=== PATIENT | male | born 1940 | race Caucasian/White ===

== ENCOUNTER 2019-07-11 21:25 | Inpatient (IN) ==
[2019-07-11] MEDS ORDERED: SODIUM CHLORIDE 0.9% 500 ML IV SCH (21:45)
[2019-07-11 21:50] LABS: Basophils # (auto) 0.01 K/uL (0-0.2); Basophils % (auto) 0.2 %; Eosinophils # (auto) 0.04 K/uL (0-0.5); Eosinophils % (auto) 0.8 %; Hematocrit (blood only) 44.9 % (42-52); Hemoglobin 15.7 g/dL (14.0-18.0); Immature Granulocytes # (auto) 0.02 K/uL (0.00-0.02); Immature Granulocytes % (auto) 0.4 %; Lymphocytes # (auto) 0.58 K/uL (1.2-3.4); Lymphocytes % (auto) 11.6 %; Mean Corpuscular Hemoglobin 31.2 pg (25-34); Mean Corpuscular Volume 89.1 fL (80-100); Mean Platelet Volume 10.7 fL (7.4-10.4); Monocytes # (auto) 0.47 K/uL (0.11-0.59); Monocytes % (auto) 9.4 %; Neutrophils % (auto) 77.6 %; Platelet Count 131 K/uL (130-400); RDW Standard Deviation 45.7 fL (36.4-46.3); Red Blood Count 5.04 M/uL (4.7-6.1); White Blood Count 5.02 K/uL (4.8-10.8)
[2019-07-11 21:52] LABS: Appearance Urine Clear (Clear); Bacteria Urine Automated Negative (Negative); Blood Urine 2+ (Negative); Color Urine Dark Yellow; Epithelial Cell Urine Auto >30 /lpf (0-5); Glucose Urine UA Negative (Negative); Ketones Urine Trace (Negative); Leukocyte Esterase Urine Negative (Negative); Nitrite Urine Negative (Negative); Protein Urine 1+ (Negative); Specific Gravity Urine 1.022 (1.000-1.030); Urobilinogen Urine Negative (Negative)
[2019-07-11 21:55] LABS: Bilirubin Urine Negative (Negative); Ictotest Urine Negative (Negative)
[2019-07-11 22:03] LABS: Renal Epithelial Cells Urine 0-5 /lpf (0-5)
[2019-07-11 22:05] LABS: Alanine Aminotransferase 26 U/L (12-78); Albumin Level 3.3 gm/dl (3.4-5.0); Aspartate Aminotransferase 27 U/L (15-37); BUN Creatinine Ratio 12.2 (10-20); Blood Urea Nitrogen 21 mg/dl (7-18); Calcium 9.4 mg/dl (8.5-10.1); Carbon Dioxide 30 mmol/L (21-32); Chloride 107 mmol/L (98-107); Creatinine Clr Calc Pharmacy 36.5 ml/min; Est GFR (African American) 42.6; Est GFR (Non-African American) 36.7; Glucose 120 mg/dl (70-99); Magnesium 2.3 mg/dl (1.8-2.4); Potassium 3.4 mmol/L (3.5-5.1); Sodium 142 mmol/L (136-145)
[2019-07-11 22:15] LABS: Albumin Globulin Ratio 0.9 (0.9-2); Alkaline Phosphatase 97 U/L (45-117); Creatine Kinase 58 U/L (39-308); Globulin 3.7 gm/dl (2.5-4.0); Troponin I < 0.015 ng/ml (0-0.045)
--- NOTE | 2019-07-11 22:15 | XRay Report ---
XR chest 1V portable CLINICAL HISTORY: Acute change in mental status COMPARISON STUDY: Chest x-ray dated 01/03/2014, CT scan of the abdomen and pelvis dated 01/04/2014 FINDINGS: The heart is normal in size. There is a lower right paraspinal opacity which is felt to rep resent an ectatic/tortuous descending thoracic aorta. There is no failure. There is no lobar consolid ation. There are no pleural effusions.[ IMPRESSION: 1. 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 No evidence of failure. No evidence of focal pulmonary consolidation Electronically signed by: Bhavesh Brooks M.D. 07/11/2019 10:13 PM
[2019-07-11 22:27] LABS: T4 Free Thyroxine 1.56 ng/dl (0.8-1.6)
--- NOTE | 2019-07-11 22:39 | CT Scan Report ---
CT head/brain wo con CLINICAL HISTORY: Head trauma. Change in mental status. COMPARISON STUDY: Head CT dated 03/24/2014, MRI of the brain dated 03/19/2018 TECHNIQUE: Axial CT of the brain is performed from the vertex to the skull base. IV contrast was not administered for this examination. A dose lowering technique was utilized adhering to the principles of ALARA. CT DOSE: 1059.50 mGy.cm FINDINGS: No intra or extra-axial mass lesions are visualized. There is no CT evidence of acute cortical infarc tion. There is no evidence of midline shift. There is no acute hemorrhage. No calvarial fractures ar e visualized. There are moderate white matter hypodensities likely on a small vessel basis. There is an old right t halamic lacunar infarct. There is an old lacunar infarct posterior limb of the left internal capsule. There is a giant cisterna magna. There is mild ventricular dilatation which is felt to be secondary t o volume loss. There is no evidence of acute sinusitis There are prominent vertebral artery calcifications, and prominent internal carotid artery calcificat ions. IMPRESSION: No acute intracranial findings Electronically signed by: Bhavesh Brooks M.D. 07/11/2019 10:37 PM
--- NOTE | 2019-07-11 22:45 | CT Scan Report ---
CT OF THE CERVICAL SPINE CLINICAL HISTORY: Neck pain status post trauma COMPARISON STUDY: No previous studies for comparison. CT DOSE: TECHNIQUE: CT scan of the cervical spine was performed from the skull base to the thoracic inlet. Amanda ges are reviewed in the axial, sagittal, and coronal planes. IV contrast was not administered for thi s examination. A dose lowering technique was utilized adhering to the principles of ALARA. FINDINGS: The visualized portions of the lung apices reveal no evidence of pneumothorax. The prevertebral soft tissues are normal. No fractures or subluxations are visualized. There are multilevel degenerative changes IMPRESSION: No evidence of acute fracture or traumatic subluxation. Electronically signed by: Bhavesh Brooks M.D. 07/11/2019 10:44 PM
[2019-07-11] MEDS ORDERED: METOPROLOL TARTRATE 1 MG/ML VIAL IV STA (22:54)
--- NOTE | 2019-07-11 23:31 | Emergency Department Note ---
History of Present Illness General Chief complaint: Altered Mental Status Stated complaint: AMS Time Seen by Provider: 07/11/19 21:34 History of Present Illness This 79-year-old presents to the ER complaining of increased confusion who was found outside by the neighbor who has dementia Location: Generalized Quality: Increased confusion Severity: Moderate Duration: Tonight Timing: Tonight Context: Family was concerned and summoned EMS Modifying factors: better with nothing; worse with nothing Family is obtained from the ex- who states the patient's daughter was with him today to check on him around 4 PM and the patient went to go to bed so she left. The ex- states she received a phone call from the neighbor later that the patient was outside sitting on the bench cold and wet. EMS was summoned. She states he is more confused than baseline. He does have some dementia. He said a few strokes in the past. He is noncompliant with medication. Patient himself has no medical complaints. He knows his name but not the year or president. Home Medications Home Medications Medication Instructions Recorded Confirmed Type lisinopril 5 mg PO DAILY 07/11/19 07/11/19 History metoprolol tartrate 25 mg PO BID 07/11/19 07/11/19 History Allergies Allergy/AdvReac Type Severity Reaction Status Date / Time No Known Allergies Allergy Unverified 07/11/19 22:39 Past Med/Surg History Medical History CVA (cerebral vascular accident) Dementia High blood pressure Social History Preferred Language: Bahamian Communication Ability: Effective Product Inspection Coordinator Required: No Beliefs That Will Affect Care: None Current Living Situation: Spouse Feels Safe at Home: Yes Safety Concerns: Feels Safe At This Time Smoking Status: Unknown if ever smoked Hx Substance Use: No Review of Systems Unobtainable due to cognitive status Physical Exam Vital Signs Vital Signs - 24 hr 07/11/19 21:34 07/11/19 21:43 07/11/19 22:50 Temperature 36.4 C L Temperature Source Oral Sepsis Recent Fever Within 48 Hours No Sepsis New/Unexplained Change in Mental Status No Sepsis Action Taken by Nursing No Action Required Pulse Rate 104 H Pulse Rate [Left] 108 H Pulse Rhythm Regular Pulse Rhythm [Left] Regular Pulse Strength [Left] Normal Respiratory Rate 18 20 Respiratory Effort / Characteristics Non-Labored Spontaneous Non-Labored Spontaneous Respiratory Depth Normal Normal Respiratory Pattern Regular Blood Pressure 177/123 H Blood Pressure [Right Arm] 189/113 H Blood Pressure Mean 141 Blood Pressure Mean [Right Arm] 138 Blood Pressure Position Lying Blood Pressure Position [Right Arm] Lying Pulse Oximetry 97 95 95 Oxygen Delivery Method Room Air Room Air Room Air 07/11/19 23:03 07/11/19 23:15 07/12/19 00:02 Temperature Temperature Source Sepsis Recent Fever Within 48 Hours Sepsis New/Unexplained Change in Mental Status Sepsis Action Taken by Nursing Pulse Rate Pulse Rate [Left] 93 H 88 87 Pulse Rhythm Pulse Rhythm [Left] Pulse Strength [Left] Respiratory Rate 20 20 20 Respiratory Effort / Characteristics Respiratory Depth Respiratory Pattern Blood Pressure Blood Pressure [Right Arm] 188/126 H 176/124 H 144/101 H Blood Pressure Mean Blood Pressure Mean [Right Arm] 146 141 115 Blood Pressure Position Blood Pressure Position [Right Arm] Pulse Oximetry 96 98 96 Oxygen Delivery Method Room Air Room Air VITALS: Vitals are noted on the nurse's note and reviewed by myself. Vital signs hypertensive. GENERAL: Elderly male able to follow commands, in no acute distress, nondiaphoretic, well-developed well-nourished. SKIN: The skin was without rashes, erythema, edema, or bruising. There is no tenting of the skin. Capillary reflex less than 2 seconds. HEAD: Normocephalic atraumatic. EARS: External auditory canals clear, tympanic membranes pearly keen without erythema or effusion bilaterally. EYES: Pupils equal round and reactive to light and accommodation. Conjunctivae without injection, sclerae without icterus. Extraocular movements intact. NOSE: Patent, turbinates without inflammation or discharge. MOUTH: Mucous membranes mildly dry. Pharynx without erythema or exudate. Uvula midline. Airway patent. Tongue does not deviate. NECK: Supple without nuchal rigidity. No lymphadenopathy. No thyromegaly. Cervical spine is nontender. No JVD. HEART: Regular rate and rhythm LUNGS: Clear to auscultation bilaterally without wheezes, rales or rhonchi. No retractions or accessory muscle use. ABDOMEN: Positive bowel sounds x 4. Normal tympanic percussion. Soft, nontender, without masses or organomegaly. Casas sign negative. No guarding or rebound tenderness. No CVA tenderness MUSCULOSKELETAL: No muscle atrophy, erythema, or edema noted. NEURO: Patient was alert and oriented to person but not place and time. Patient is able to follow commands. Course Administered Medications Discontinued Medications Sodium Chloride (Nss) 500 mls @ 999 mls/hr IV .Q31M MALINDA Stop: 07/11/19 22:15 Last Infusion: 07/11/19 23:23 Dose: 0 mls/hr Documented by: [id number] Admin: 07/11/19 22:49 Dose: 999 mls/hr Documented by: [id number] Metoprolol Tartrate (Lopressor) 5 mg IV NOW STA Stop: 07/11/19 22:55 Last Admin: 07/11/19 22:58 Dose: 5 mg Documented by: [id number] Medical Decision Making Medical Records Attestation: I reviewed the patient's medical records. Home Medications Current Medication List: was personally reviewed by me Laboratory Data Attestation: I reviewed the patient's lab results. Result diagrams: 07/11/19 21:40 07/11/19 21:40 Lab Results 07/11/19 07/11/19 07/11/19 Range/Units 21:40 21:40 21:40 WBC 5.02 (4.8-10.8) K/uL RBC 5.04 (4.7-6.1) M/uL Hgb 15.7 (14.0-18.0) g/dL Hct 44.9 (42-52) % MCV 89.1 (80-100) fL MCH 31.2 (25-34) pg MCHC 35.0 (32-36) g/dL RDW Std Deviation 45.7 (36.4-46.3) fL RDW Coeff of [place]icol 14.0 (11.5-14.5) % Plt Count 131 (130-400) K/uL MPV 10.7 H (7.4-10.4) fL Immature Gran % (Auto) 0.4 % Neut % (Auto) 77.6 % Lymph % (Auto) 11.6 % [place] % (Auto) 9.4 % Eos % (Auto) 0.8 % Baso % (Auto) 0.2 % Immature Gran # (Auto) 0.02 (0.00-0.02) K/uL Neut # (Auto) 3.90 (1.4-6.5) K/uL Lymph # (Auto) 0.58 L (1.2-3.4) K/uL [place] # (Auto) 0.47 (0.11-0.59) K/uL Eos # (Auto) 0.04 (0-0.5) K/uL Baso # (Auto) 0.01 (0-0.2) K/uL Sodium 142 (136-145) mmol/L Potassium 3.4 L (3.5-5.1) mmol/L Chloride 107 (98-107) mmol/L Carbon Dioxide 30 (21-32) mmol/L Anion Gap 6.0 (3-11) BUN 21 H (7-18) mg/dl Creatinine 1.75 H (0.6-1.4) mg/dl Est Cr Clr Drug Dosing 36.5 ml/min Est GFR ( Amer) 42.6 Est GFR (Non-Af Amer) 36.7 BUN/Creatinine Ratio 12.2 (10-20) Glucose 120 H (70-99) mg/dl Calcium 9.4 (8.5-10.1) mg/dl Magnesium 2.3 (1.8-2.4) mg/dl Total Bilirubin 1.0 (0.2-1) mg/dl AST 27 (15-37) U/L ALT 26 (12-78) U/L Alkaline Phosphatase 97 (45-117) U/L Total Creatine Kinase 58 (39-308) U/L Troponin I < 0.015 (0-0.045) ng/ml Total Protein 7.0 (6.4-8.2) gm/dl Albumin 3.3 L (3.4-5.0) gm/dl Globulin 3.7 (2.5-4.0) gm/dl Albumin/Globulin Ratio 0.9 (0.9-2) TSH 4.910 H (0.300-4.500) uIu/ml Free T4 1.56 (0.8-1.6) ng/dl Urine Color Dark Yellow Urine Appearance Clear (Clear) Urine pH 5.0 (4.5-7.5) Ur Specific [place] 1.022 (1.000-1.030) Urine Protein 1+ H (Negative) Urine Glucose (UA) Negative (Negative) Urine Ketones Trace H (Negative) Urine Blood 2+ H (Negative) Urine Nitrite Negative (Negative) Urine Bilirubin Negative (Negative) Urine Urobilinogen Negative (Negative) Ur Leukocyte Esterase Negative (Negative) Urine WBC (Auto) 1-5 (0-5) /hpf Urine RBC (Auto) 10-30 H (0-4) /hpf U Hyaline Cast (Auto) 10-30 H (0-5) /lpf U Epithel Cells (Auto) >30 H (0-5) /lpf Urine Bacteria (Auto) Negative (Negative) Ur Renal Epithelial Cell 0-5 (0-5) /lpf Imaging Data Attestation: I personally reviewed and interpreted this imaging study as follows: Blood Pressure Blood Pressure Findings: Elevated blood pressure Blood Pressure Disposition: Referred to patients primary care provider MDM Narrative Prior records/ancillary studies reviewed and summarized above. Nursing notes reviewed. Additional history obtained from family. The patient's history was concerning for altered mental status. Differential diagnosis: Etiologies such as metabolic, infection, hypoglycemia, electrolyte abnormalities, cardiac sources, intracerebral event, toxicologic, neurologic, as well as others were entertained. Physical examination: As above. ER treatment provided: IV Lock Normal saline hydration Lopressor On reassessment the patients mental status did not improve Diagnostics interpretation by me: ECG: Ordered for altered mental status Normal sinus, normal intervals, no acute ST-T changes, rate of 104. Impression sinus tachycardia interpreted by myself I think arrhythmia is unlikely. EKG shows normal sinus rhythm with no interval abnormalities such as QT prolongation or WPW. There are no findings to suggest Brugada syndrome. Cardiac monitoring in the emergency department reveals no tachycardic or bradycardic dysrhythmia. Hypertrophic cardiomyopathy was considered but there are no clear historical elements pointing toward this. EKG is not suggestive. The QRS voltage is not extremely large and there are no suggestive Q waves. The labs revealed no leukocytosis. Negative urine Imaging studies: CT head/brain wo con CLINICAL HISTORY: Head trauma. Change in mental status. COMPARISON STUDY: Head CT dated 03/24/2014, MRI of the brain dated 03/19/2018 TECHNIQUE: Axial CT of the brain is performed from the vertex to the skull base. IV contrast was not administered for this examination. A dose lowering technique was utilized adhering to the principles of ALARA. CT DOSE: 1059.50 mGy.cm FINDINGS: No intra or extra-axial mass lesions are visualized. There is no CT evidence of acute cortical infarction. There is no evidence of midline shift. There is no acute hemorrhage. No calvarial fractures are visualized. There are moderate white matter hypodensities likely on a small vessel basis. There is an old right thalamic lacunar infarct. There is an old lacunar infarct posterior limb of the left internal capsule. There is a giant cisterna magna. There is mild ventricular dilatation which is felt to be secondary to volume loss. There is no evidence of acute sinusitis There are prominent vertebral artery calcifications, and prominent internal carotid artery calcifications. IMPRESSION: No acute intracranial findings Electronically signed by: Bhavesh Brooks M.D. 07/11/2019 10:37 PM XR chest 1V portable CLINICAL HISTORY: Acute change in mental status COMPARISON STUDY: Chest x-ray dated 01/03/2014, CT scan of the abdomen and pelvis dated 01/04/2014 FINDINGS: The heart is normal in size. There is a lower right paraspinal opacity which is felt to represent an ectatic/tortuous descending thoracic aorta. There is no failure. There is no lobar consolidation. There are no pleural effusions.[ IMPRESSION: 1. 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 No evidence of failure. No evidence of focal pulmonary consolidation Electronically signed by: Bhavesh Brooks M.D. 07/11/2019 10:13 PM Dictated: 07/11/192210 Transcribed: 07/11/192210 CT OF THE CERVICAL SPINE CLINICAL HISTORY: Neck pain status post trauma COMPARISON STUDY: No previous studies for comparison. CT DOSE: TECHNIQUE: CT scan of the cervical spine was performed from the skull base to the thoracic inlet. Images are reviewed in the axial, sagittal, and coronal planes. IV contrast was not administered for this examination. A dose lowering technique was utilized adhering to the principles of ALARA. FINDINGS: The visualized portions of the lung apices reveal no evidence of pneumothorax. The prevertebral soft tissues are normal. No fractures or subluxations are visualized. There are multilevel degenerative changes IMPRESSION: No evidence of acute fracture or traumatic subluxation. Electronically signed by: Bhavesh Brooks M.D. 07/11/2019 10:44 PM Given the above diagnostic work-up and treatment, this episode appears to be consistent with increased confusion with hypertensive urgency. Further treatment will be required. Family is agreeable treatment plan of admission. Medicine was consulted. No urine infection. No pneumonia. Negative PET scan. Consultation: A consultation was placed with Dr Streeter, hospitalist. The case was discussed and diagnostics were reviewed. The patient was evaluated in the ER for further treatment. Case reviewed with my attending The chart was completed utilizing [employer] Speech voice recognition software. Grammatical errors, random word insertions, pronoun errors, and incomplete sentences are an occassional consequence of this system due to software limitations, ambient noise, and hardware issues. Any formal questions or concerns about the content, text, or information contained within the body of this dictation should be directly addressed to the physician economic research assistant for clarification. Impression & Plan Altered mental status, Hypertensive urgency Discharge Plan Visit Data *Final* Discharge Date/Time: 07/12/19 01:19 Chief Complaint: Altered Mental Status Stated Complaint: AMS ED Provider: Joy Vallecillo ED Midlevel Provider: Lyly Bell Discharge Problem: Altered mental status, Hypertensive urgency Patient Disposition: Admitted As Inpatient Condition: Fair Discharge Instructions Interventions: ED Discharge Assessment Last Done: 07/12/19 01:19 Discharge Problem: Altered mental status Qualifiers: Altered mental status type: unspecified Qualified Code(s): R41.82 - Altered mental status, unspecified
--- NOTE | 2019-07-12 00:32 | Emergency Department Note ---
ED Visit Note I have personally seen and evaluated the patient with the PA. I agree with the diagnosis and management decisions and have been personally involved in the case. Upon my evaluation, the patient is resting comfortably. He has had some periodic confusion but no focal weakness or neurologic deficit per nursing. Please see Yeimy Bell PA-C's notes for further details of the history, physical and visit. . : Altered mental status Qualifiers: Altered mental status type: unspecified Qualified Code(s): R41.82 - Altered mental status, unspecified
--- NOTE | 2019-07-12 02:11 | History and Physical Report ---
DATE OF ADMISSION: 07/12/2019 CHIEF COMPLAINT: Confusion. HISTORY OF PRESENT ILLNESS: This is a 79-year-old male with past medical history significant for cerebrovascular accident, some residual left leg weakness, history of dementia, hyperlipidemia, hypertension, chronic kidney disease stage III, adjustment disorder with depression and a history of tobacco use. The patient lives alone. As per primary care physician notes, he has a home health with 40 hours a week and as per primary care physician note, he was not taking his medications and it is not sure why he is not taking and his ex- was worried about his memory getting worse at that time. Today, as per the Emergency Room, the patient's daughter checked him at around 4:00 p.m. and the patient went to bed and she left. Then, the ex- received a call from the neighbor that the patient was sitting outside on a bench, cold and wet and Emergency Medical Service was summoned and the patient was brought in here. The patient seems to be noncompliant with medication. Currently resting comfortably and hemodynamically stable. Laboratories are all fine. Creatinine is 1.7. Baseline is around 1.5. Thyroid stimulating hormone is slightly high at 4.9, but free T4 is normal. Urinalysis unremarkable. CT of the head was fine. Cervical CT spine was okay. Chest x-ray with no acute findings. Electrocardiogram was okay. The patient is oriented to name only. Denies any headache. Denies chest pain or shortness of breath. He states he has some abdominal discomfort earlier, but that is gone. Denies any nausea. He does not know where he is and could not get much history from the patient. Able to call ex and she says his health care sanitary technician left around 4pm and he seemed little more confused than usual but sometimes he is more confused than usual. Then later she received call from neighbor who also checks on the patient that he was found on the ground in front of his house. He seemed to went down stairs without his walker and his dog went to the neighbor.When neighbor came to see him he was on the ground but awake. Initially patient didn't recognized the neighbor and seemed more confused but later able to recognize the neighbor. MS was called and brought o ER. ALLERGIES: No known drug allergies. PAST MEDICAL HISTORY: As mentioned above. PAST SURGICAL HISTORY: Amputation of the finger, colonoscopy and cholecystectomy. MEDICATIONS: The patient is supposed to be on atorvastatin 10 mg p.o. daily, lisinopril 5 mg p.o. daily, Lopressor 25 mg p.o. b.i.d., aspirin 325 mg p.o. daily, Tylenol p.r.n., MiraLax p.r.n. and Colace p.r.n. FAMILY HISTORY: Significant for father had liver cancer. Mother had myocardial infarction at age 50. Brother had massive myocardial infarction at age 34. Sister has breast cancer. Sister with uterine cancer. SOCIAL HISTORY: Currently living alone. Quit smoking in 1979, smoked 0.5 packs a day for 22 years. Alcohol occasional. No drug use. REVIEW OF SYSTEMS: Unobtainable at this time as the patient is only oriented to name only. PHYSICAL EXAMINATION: GENERAL: The patient is alert and oriented to name only, not in acute distress. VITAL SIGNS: Temperature 36.4, pulse 87, respiratory rate 20, blood pressure 142/101 and oxygen 96% on room air. HEENT: No pallor. No icterus. Pupils are equal, round and reactive to light. NECK: No JVD. No neck masses. No carotid bruits. CARDIOVASCULAR: S1, S2 heard. Regular rate and rhythm. No murmur. No gallop. RESPIRATORY SYSTEM: Normal AP diameter. No accessory muscle use. No wheezing. No crackles. ABDOMEN: Soft. Bowel sounds present. Nontender. No distention. CENTRAL NERVOUS SYSTEM: Alert and awake and oriented to name only. Obeys simple commands. Power 5/5 in upper extremities. difficult to lift lower extremities Coordination was normal. [id number] test normal. EXTREMITIES: No edema. No erythema. LABORATORY DATA: WBC 5, hemoglobin 15.7, hematocrit 44.9 and platelets 131. Sodium 142, potassium 3.4, chloride 107, bicarbonate 30, BUN 21, creatinine 1.75, serum glucose 120, calcium 9.4, magnesium 2.3, total bilirubin 1, AST 27, ALT 26, alkaline phosphatase 97 and total creatine kinase 58. Troponin I less than 0.015. Thyroid stimulating hormone 4.9. Free T4 of 1.5. Urinalysis, trace protein and ketones and trace blood. IMAGING: CT of the head, no acute no acute intracranial abnormalities. Chest x-ray, 4.3 cm lower right paraspinal opacity likely representing a tortuous/ectatic descending thoracic aorta, no evidence of focal pulmonary consolidation. Cervical spine CT, no evidence of fracture or traumatic subluxation. Electrocardiogram, sinus tachycardia, rate of 104 and no significant change from previous electrocardiogram. ASSESSMENT AND PLAN: This is a 79-year-old male with a history of dementia and a history of previous strokes who lives alone at home with home health care who presents with possible confusion. 1. Questionable confusion. The patient has dementia, lives alone but has 40 hours of home health care as per primary care physician notes and as per ex who is POA. Day care nurse was there at home until 4:00 p.m. and he was doing okay somewhat more confused than usual, he went to bed, but later in the night he was found down sitting front of his house, cold and his neighbor called the ex- and he was brought in to the hospital. In the Emergency Room, workup so far looks okay. We will monitor on the medical floor. We will get physical therapy and occupational therapy evaluation in a.m. Social Service consult if the patient is safe to return home. 2. History of cerebrovascular accident with some left-sided residual weakness. Supposed to be on aspirin and statin.Patient is noncompliant with medications, we will place him on aspirin 81 mg and Lipitor 10 mg daily and follow fasting lipid profile. 3. History of hypertension. We will continue his lisinopril and metoprolol. As per ex he doesn't take any of his medications.Will monitor his blood pressure. 4. History of acute renal failure on chronic kidney disease stage III, baseline creatinine around 1.5. Presented with creatinine 1.7. We will place on gentle fluids. Follow the laboratories in a.m. and we will also get renal ultrasound as there is hx of hydronephrosis. 5. Adjustment disorder and depression, currently not on any medications. 6. Mild elevation of thyroid stimulating hormone, but normal free T4 . Sub clinical hypothyroidism? needs follow up with repeat laboratories. 7. 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 Needs followup. 8. Deep venous thrombosis prophylaxis, sequential compression devices. 9. Disposition: Monitor on the medical floor. Physical therapy and occupational therapy prior to discharge. Social Service to help with discharge planning. Code status DNR as per EX who is POA. MTDD
[2019-07-12] MEDS ORDERED: ACETAMINOPHEN 325 MG TAB PO PRN (02:20)
[2019-07-12] MEDS ORDERED: POLYETHYLENE (MIRALAX) 17 GM PACK PO PRN (02:20)
[2019-07-12] MEDS ORDERED: ONDANSETRON INJ 2 MG/ML 2 ML VIAL IV PRN (02:20)
[2019-07-12] MEDS: SODIUM CHLORIDE 0.9% 1000ML 1,000 ML IV SCH ×2 (02:48→16:05)
[2019-07-12] MEDS ORDERED: lisinopriL 5 MG TAB PO SCH (09:00)
[2019-07-12] MEDS ORDERED: ATORVASTATIN 10 MG TAB PO SCH (09:00)
[2019-07-12] MEDS ORDERED: METOPROLOL TARTRATE 25 MG TAB PO SCH (09:00)
[2019-07-12] MEDS ORDERED: ASPIRIN 81 MG ECTAB PO SCH (09:00)
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
[2019-07-12] MEDS: QUETIAPINE FUMARATE 25 MG TABLET PO SCH (21:27)
[2019-07-13] MEDS: QUETIAPINE FUMARATE 25 MG TABLET PO SCH ×2 (08:05→20:05)
[2019-07-13] MEDS: HydrALAZINE HCL 20 MG/ML VIAL IV PRN (15:39)
--- NOTE | 2019-07-13 17:52 | Hospitalist Progress Note ---
Date of Service July 13, 2019 Assessment & Plan (1) Altered mental status: Started on Seroquel, patient appears to be more calm today, still having delusion, start patient on Seroquel 50 mg at bedtime, 25 mg a.m. Patient was found wandering around, on the ground outside his house, found by his neighbor Patient was confused, Lives at home alone, has caregiver 40 hours daily Patient's ex- POA checks on him frequently-has noticed worsening of confusion, psychosis, delusion last 1 week-has been seeing bugs on the wall,bugs has made holes in the wall -causing him to get wet when it rains pt lives in apartment has been very belligerent and combative with neighbors and landlord hx of Bipolar disorder May need further titration if symptoms of psychosis remains uncontrolled May consider psychiatric consult, need to add additional antipsychotic meds (2) Bipolar disorder: History of bipolar mood disorder as per record (3) Dementia with psychosis: Patients with persecutory delusion/noted to have hallucination/psychosis: Thinking everybody is out there to harm him Found to be wandering around, neighbor found him outside on the backyard at night, does not recall, he has been out Trial of Seroquel ordered PRN Haldol IM for agitation Will benefit with locked dementia unit Social service consult for discharge planning (4) Acute renal failure: Secondary to poor p.o. intake, Given IV fluids Patient refused for the lab draws, IV fluids discontinued as it was making patient more agitated, combative Continue to encourage adequate p.o. fluid intake Hypertensive urgency At admission SBP was in 180s, patient has not been taking any of his home meds- listed as lisinopril 5 mg daily/metoprolol tartrate 25 mg twice daily Has been refusing all his meds, Refusing vitals, getting agitated Blood pressure record on 07/12/2019 at 7:40 AM was 122/76-patient was sleeping at the time We will try to have patient more calm and cooperative, to assess whether or at least improvement of blood pressure control Difficult to have him on scheduled blood pressure medication: Dementia and psychosis/combativeness PRN IV hydralazine order If patient remains persistently hypertensive we will consider clonidine patch for long-term antihypertensive CODE STATUS: Discussed with patient's ex-/POA(patient is too confused to participate in conversation) Patient has a living well-he is a DO NOT RESUSCITATE CODE STATUS changed to DNR/DNI Disposition: Be determined, was living alone at home with 40 hours a week help Patient has been progressively declining Refusing care, medications, wandering around Safety to return home/independent living Will need placement at locked dementia unit Social service consulted for placement issues Subjective Remains confused oriented to person only, More calm and cooperative today Ordered for scheduled dose of Seroquel, patient has been taking the meds Finishing meals, no fever chills No nausea vomiting or diarrhea reported Physical Exam Constitutional: + ill appearing Eyes: + anicteric sclerae Neck: normal visual inspection Respiratory: no respiratory distress, no labored breathing and no cough Auscultation: no wheezes Cardiovascular: RRR, no murmur, no edema Gastrointestinal (Abdomen): Percussion/Palpation: abdomen soft; abdomen nontender Musculoskeletal: Head/Neck/Chest: normocephalic and head atraumatic Neurologic: PERRL, EOMI, accommodation nl, no face palsy, no dysarthria Psychiatric: Orientation: alert (Very agitated,) and oriented to person; + uncooperative Apperance: + disheveled Eye Contact: + poor eye contact Motor Behavior: + psychomotor agitation Speech: + pressured speech and + loud speech Affect: + angry affect Mood: + angry mood (Evidence of psychosis, persecutory delusion) Thought Process: + tangential thought process and + flight of ideas Thought Content: + paranoid and + delusions Insight: + poor insight Results & Data Vital Signs (Past 12 Hours) Vital Signs Temp Pulse Resp BP BP Pulse Ox 07/13/19 16:14 155/88 H 07/13/19 15:28 36.4 C L 69 18 177/115 H 98 07/13/19 07:07 36.6 C 70 18 177/98 H 97 (1) Altered mental status Altered mental status type: unspecified Qualified Code(s): R41.82 - Altered mental status, unspecified (2) Bipolar disorder Active/Remission status: currently active Current bipolar episode type: manic Current episode severity: severe Psychotic features: with psychotic features Qualified Code(s): F31.2 - Bipolar disorder, current episode manic severe with psychotic features
[2019-07-14] MEDS: HydrALAZINE HCL 20 MG/ML VIAL IV PRN (07:49)
[2019-07-14] MEDS: QUETIAPINE FUMARATE 25 MG TABLET PO SCH ×2 (07:50→20:17)
--- NOTE | 2019-07-14 13:00 | Psychiatric Consultation ---
Date of Consultation July 14, 2019 Impression / Recommendations Impression 79-year-old male admitted medically on 07/12/19 due to confusion. Pt presented to the ED after family was alerted by a neighbor that the patient was sitting outside on a bench "cold and wet." EMS were called to the scene and patient was brought to the ED. It is reported that patient has likely not been compliant with his medications. Pt was unable to provide reliable history; however, ex- (POA) reports that the patient had seemed more confused than usual. Pt was reportedly initially agitated on the medical floor, but this behavior has improved with initiation of quetiapine 25mg qAM and 50mg qHS as started by medical team. Psychiatric consultation was requested to evaluate patient for reported historical diagnosis of bipolar disorder and make any additional medication recommendations. Pt is a poor historian, and therefore unable to contribute any reliable information regarding any former psychiatric history. Our service had been consulted on the patient in 2013 and 2011, with reported inconsistencies of diagnoses at that time as well. There is no known history of confirming a bipolar diagnosis. His most recent known psychiatric treatment (2013) resulted in diagnoses of: adjustment disorder with mixed features, alcohol abuse, and rule out depression. Agitation that was present at time of admission has improved significantly per staff. He has tolerated addition of quetiapine 25mg/50mg, with benefit for behaviors. QTc obtained in ED was prolonged at 473. Taking his entire clinical presentation into account, it is likely the risks of titrating a QTc prolonging agent are outweighed by the perceived benefit of improved behavioral management. Could consider input from cardiology if desired to review further. Since patient appears to be responding to quetiapine, it would seem reasonable to continue the medication - titrating if necessary. Could consider TID dosing of 25mg/25mg/50mg if higher dosage is necessary. This medication change be titrated over the course of his stay as needed. Agitated behavior observed when patient was initially admitted is likely a result of his known history of vascular dementia, and is not better explained by a primary psychiatric condition. A history of bipolar disorder has not been confirmed, despite this facilities history with him since 2011. He has not been hospitalized for psychiatric treatment in over 5 years and had no psychiatric home medications prior to this admission. His agitation has responded to scheduled dosing of quetiapine, and patient would be considered psychiatrically stable for transfer to a SNF or inpatient physical rehab depending on decisions made by family and primary medical team. It is likely patient will require a locked demential unit in order to receive the most appropriate level of care. He denies SI/HI, A/V hallucinations, and other symptoms of acute psychosis - therefore there is no criteria for inpatient psychiatric treatment. Pt suffers from a known history of vascular dementia. He is unable to explain to this provider the cause of his admission, he believes it is "the last Saturday in March" of 1985. He shares with this provider that he does not want to be told where he will live, but when asked about his current options, he refuses to discuss further and states "I have more money than everyone in this hospital combined. At this time, he is not able to engaged in a reasonable conversation about treatment recommendations or discharge planning. Due to level of confusion/disorientation, it is believed that patient is not able to manipulate information provided to him in a reality-based manner. Based on his presentation at time of this assessment, the patient does not appear to have capacity to make his own decisions regarding his medical treatment or discharge planning. Dr. Edita Meredith was directly involved in review and discussion of the patient's case and participated in medical decision making regarding treatment recommendations. PLAN: 07/14 - Continue quetiapine, as the medication has been beneficial in improving agitation observed on initial admission - If titration is necessary, could consider TID dosing of 25mg/25mg/50mg - with increase as needed to effectively manage behaviors - Obviously, primary goal would be to couple medication administration with behavioral management: frequent reorientation to p erson/place/time/event/intervention to be performed, permitting comforting objects/visitors to be present in room, use of corrective lenses/hearing devices as appropriate, keeping active and awake during the day with lights on in room, and protecting sleep hours by keeping room dark and quiet. - There is no indication for inpatient psychiatric treatment, as his presentation is not believed to be a result of a primary psychiatric condition; he denies SI/HI and other signs of psychosis - Now that agitation has improved with initiation of quetiapine, patient is considered psychiatrically stable for transfer to a SNF, inpatient physical rehab, or other appropriate facility - Appreciate the opportunity to participate in the care of this patient CPT Code Initial Consultation: 17681 Psych History Identifying Data 79-year-old male admitted medically on 07/12/19 due to confusion. Pt was brought to the ED by EMS after he was found by a neighbor, reportedly confused after laying outside on the ground in the cold and rain. Patient's family was informed of the concern by the patient's neighbor and have been providing collateral information. Pt has a long history of vascular dementia, and ex- reportedly has POA for his medical decision-making. Psychiatric consultation was requested to assess for "bipolar mood disorder", with request for any additional medication recommendations. Information is gathered from current admission documentation, psychiatric consultations from 2011 and 2013, and the patient himself - who is not considered to be a reliable historian. Chief Complaint "I'm getting really tired of people lying. Everyone around here is mingling in my business." History of Present Illness Eric Leach is a 79-year-old male admitted medically on 07/12/19 after he was brought to the ED by EMS for confusion. Pt was reportedly found by his neighbor, when patient was laying on the cold, wet ground. Family was informed and has assisted in providing collateral. PMH includes CVAs, residual leg weakness, HLD, HTN, CKD stage III, adjustment disorder, and tobacco use. Pt does have a history of vascular dementia, reported as far back as a psychiatric consultation in 2011. It is reported that the patient live independently, but receives care from a home health nurse 40 hours per week. He was last seen on psychiatric consult service in 2013, to evaluate for reported history of bipolar disorder - which has not been confirmed. Psychiatric consultation during present admission is requested for the same, along with medication recommenda tions to manage agitation demonstrated during initial admission. Pt was cooperative with psychiatric evaluation, however, the reliability of his history is questionable. Pt begins our conversation by verbalizing that he is "tired of people lying." Pt shares a belief that nurses are "mingling in my and my 's business." Pt was informed that our goals are to help him feel better, but also to coordinate a safe discharge plan - at that communication with his family is necessary for this. Pt admits that his is actually his ex-, and previous consults suggest they have been for over 25 years, though she continues to be a major caregiver. Pt shares more of his concerns about "people mingling", and then abruptly states, "and don't even ask me for my home address, because I don't know it!" Pt states that he was "moved last Saturday", but cannot provider the address for either housing option. 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 I'm here." Pt denies any suicidal ideation, stating "life is worth living." He also denies homicidal ideation. Aside from ron beltrán's belief that staff is "spreading rumors", he admits to feeling safe and comfortable in the hospital. Pt's attempts to share his thoughts are often interrupted by tangential requests for a can of chew. Pt then shares with this provider, "you're not telling me where I'm going to live." When asked what his housing options are at this time, he was unable to respond with a related comment - let alone clear ideas for living options. 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 Pt denies other needs at this time. Pt denies SI, HI, SIB, A/V hallucinations, pauly/hypomania, other symptoms more suggestive of a bipolar presentation, OCD, PTSD, eating disorder, and other specific psychiatric symptoms. Past Psychiatric History Previous Psych History: Per psychiatric consultation in 2014, patient was a former patient of Dr. Garcia in [place], [place]. There is no mention of any psychiatric treatment since we were involved in his care in 2014. Current Psychiatric Diagnosis: As of 2013: Adjustment disorder with mixed features, alcohol abuse Outpatient Services: None presently Previous Psych Admissions: Only know psychiatric hospitalization was a geriatric psychiatry admission to [facility] in [place] from 10/16/13 - 10/20/13. Pt was reported admitted involuntarily after he reported an overdose to his neighbor - admitting to taking #8 tablets of metoprolol and 3 beers over the course of one hour. History of Previous Suicide Attempt: Yes (though situation is unclear) Describe Attempts in the Past: reportedly took 8 tablets of metoprolol in combination with 3 beers Past Medication Trials: Per prior psychiatric consultations: 1. Lexapro - reported sexual side effects 2. Haldol - utilized to manage agitation related to AMS/dementia 3. Ativan - management of agitation 4. Wellbutrin - initiated in 2013 at [facility], unclear when it was discontinued Allergies Allergy/AdvReac Type Severity Reaction Status Date / Time No Known Allergies Allergy Unverified 07/11/19 22:39 Home Medications Home Medications Medication Instructions Recorded Confirmed Type lisinopril 5 mg PO DAILY 07/11/19 07/11/19 History metoprolol tartrate 25 mg PO BID 07/11/19 07/11/19 History Family History Unable to gather reliable history at this time. Substance Abuse History Unable to reliably comment on his substance abuse history at time of encounter. Psychiatric consultation from 2013 reports that the patient admitted to drinking 2-3 beers a day. He does have a historical diagnosis of alcohol abuse. No confirmed history of use of other illicit substances. Personal History Living Arrangements: Home (lives in his own home with 40-hours of home nursing per week) Employment Status: Retired Marital Status: ( for over 25 years; ex- is POA and continues to provide care) Number Of Children: 3 daughters; only 1 of whom remains in contact with patient Beliefs That Will Affect Care: None Patient History Medical History CVA (cerebral vascular accident) Dementia High blood pressure Social History Preferred Language: Pashto Communication Ability: Impaired Orthopedic Coder Required: No Beliefs That Will Affect Care: None Current Living Situation: Spouse Feels Safe at Home: Yes Safety Concerns: Feels Safe At This Time Smoking Status: Unknown if ever smoked Hx Substance Use: No Physical Exam Psychiatric: Orientation: alert, oriented to person, oriented to place and + guarded (admits that he does not trust staff, "people are mingling in my business"); + not oriented to time When asked the date, patient believed it was "the last Saturday in March", and believed the year to be 1985. Pt then excused any error by stating, "I guess I don't know, I lost my calendar." Pt did believe the current present to be "[place]", but then later listed various campaign cities for "[employer]'s 2019 re-election". Apperance: appropriately dressed (in hospital gown), + disheveled and appeared stated age Elderly male of healthy-appearing weight. Pt initially sleeping, but demonstrated no acute distress for duration of interview. Pt is appropriately dressed in a hospital gown. His is mildly malodorous and is disheveled. His facial hair is long and unkempt - with overgrown nose, ear, and eyebrow hair. Pt appear to be edentulous. Tongue is appearing dye, and hydration is likely not to desired level. Eye Contact: good eye contact Motor Behavior: no abnormal motor movements (observed while laying in bed) Speech: + pressured speech and + loud speech Patient's speech is pressured and loud, but not hyperverbal or rapid. He is a nimated in conversation and behavior during interview. At times, speech is dysarthric, and he is very difficult to understand. Affect: + irritable affect (mildly, when discussing his belief that staff is "mingling in my business") Mood: + depressed mood ("Yeah, I was sad. I still am.") and + irritable mood ("I'm upset, they're mingling in my and my ex-'s business") Thought Process: + tangential thought process and + concrete thought process; + thought process not linear or logical, + thought process not clear or coherent and + thought association not intact Thought Content: + paranoid (believes staff is "spreading rumors") and + delusions Suicidal Thoughts: denies suicidal thoughts, denies suicidal plan and denies suicidal intent Homicidal Thoughts: denies homicidal thoughts Hallucinations: no auditory hallucinations and no visual hallucinations Insight: + severely impaired insight (likely as a result of dementia, rather than a primary psychiatric condition) Judgement: + severely impaired judgement (likely as a result of dementia, rather than a primary psychiatric condition) Vital Signs (Past 24 Hours): Last Vital Signs Temp 36.5 C 07/14/19 11:10 Pulse 78 07/14/19 11:10 Resp 17 07/14/19 11:10 BP 134/94 07/14/19 11:10 Pulse Ox 98 07/14/19 11:10 Review of Systems Did not verbalize any current physical complaints with regard to ROS completed, reliability of assessment is unknown given that patient is an unreliable historian. Results & Data Medications Administered Hydralazine HCl (Hydralazine Hcl) 10 mg IV Q8 PRN PRN Reason: [id number] Stop: 08/12/19 08:36 Last Admin: 07/14/19 07:49 Dose: 10 mg Documented by: [id number] Admin: 07/13/19 15:39 Dose: 10 mg Documented by: [id number] Quetiapine Fumarate (Seroquel) 50 mg PO HS [facility] Stop: 08/11/19 20:59 Last Admin: 07/13/19 20:05 Dose: 50 mg Documented by: [id number] Admin: 07/12/19 21:27 Dose: 50 mg Documented by: [id number] Quetiapine Fumarate (Seroquel) 25 mg PO DAILY [facility] Stop: 08/12/19 08:59 Last Admin: 07/14/19 07:50 Dose: 25 mg Documented by: [id number] Admin: 07/13/19 08:05 Dose: 25 mg Documented by: [id number]
--- NOTE | 2019-07-14 16:09 | Hospitalist Progress Note ---
Date of Service July 14, 2019 Assessment & Plan (1) Altered mental status: Started on Seroquel, patient appears to be more calm and cooperative, still remains very paranoid delusional, thought process very tangential, At present on Seroquel 50 mg at bedtime, 25 mg a.m. Psychiatric consulted, appreciate input Recommends that Seroquel dose can be titrated up to 3 times daily :25 mg a.m./25 mg at noon/50 mg at bedtime Patient was found wandering around, on the ground outside his house, found by his neighbor Patient was confused, disoriented Lives at home alone, has caregiver 40 hours daily Patient's ex- POA checks on him frequently-has noticed worsening of confusion, psychosis, delusion last 1 week-has been seeing bugs on the wall,bugs has made holes in the wall -causing him to get wet when it rains pt lives in apartment has been very belligerent and combative with neighbors and landlord (2) Dementia with psychosis: Patients with persecutory delusion/noted to have hallucination/psychosis: Thinking everybody is out there to harm him Found to be wandering around, neighbor found him outside on the backyard at night, does not recall, he has been out Trial of Seroquel ordered PRN Haldol IM for agitation Will benefit with locked dementia unit Social service consult for discharge planning (3) Acute renal failure: Secondary to poor p.o. intake, Given IV fluids Patient refused for the lab draws, IV fluids discontinued as it was making patient more agitated, combative Continue to encourage adequate p.o. fluid intake Hypertensive urgency At admission SBP was in 180s, patient has not been taking any of his home meds- listed as lisinopril 5 mg daily/metoprolol tartrate 25 mg twice daily Has been refusing all his meds, Refusing vitals, getting agitated Blood pressure record on 07/12/2019 at 7:40 AM was 122/76-patient was sleeping at the time We will try to have patient more calm and cooperative, to assess whether or at least improvement of blood pressure control Difficult to have him on scheduled blood pressure medication: Dementia and psychosis/combativeness PRN IV hydralazine order If patient remains persistently hypertensive we will consider clonidine patch for long-term antihypertensive CODE STATUS: Discussed with patient's ex-/POA(patient is too confused to participate in conversation) Patient has a living well-he is a DO NOT RESUSCITATE CODE STATUS changed to DNR/DNI Disposition: Be determined, was living alone at home with 40 hours a week help Patient has been progressively declining Refusing care, medications, wandering around Safety to return home/independent living Will need placement at locked dementia unit Social service consulted for placement issues Subjective Patient remains confused, with episodes of agitation Has been taking scheduled dose of Seroquel 25 mg in a.m./50 mg in p.m. Psych consult appreciated, If needed for increased agitation, recommends 3 times daily dose of 2525-50 mg Patient is waiting for placement at dementia unit Physical Exam Constitutional: + ill appearing Eyes: + anicteric sclerae Neck: normal visual inspection Respiratory: no respiratory distress, no labored breathing and no cough Auscultation: no wheezes Cardiovascular: RRR, no murmur, no edema Gastrointestinal (Abdomen): Percussion/Palpation: abdomen soft; abdomen nontender Musculoskeletal: Head/Neck/Chest: normocephalic and head atraumatic Neurologic: PERRL, EOMI, accommodation nl, no face palsy, no dysarthria Psychiatric: Orientation: alert (Very agitated,) and oriented to person; + uncooperative Apperance: + disheveled Eye Contact: + poor eye contact Motor Behavior: + psychomotor agitation Speech: + pressured speech and + loud speech Affect: + angry affect Mood: + angry mood (Evidence of psychosis, persecutory delusion) Thought Process: + tangential thought process and + flight of ideas Thought Content: + paranoid and + delusions Insight: + poor insight Results & Data Vital Signs (Past 12 Hours) Vital Signs Temp Pulse Resp BP Pulse Ox 07/14/19 15:46 36.7 C 79 18 139/94 98 07/14/19 11:10 36.5 C 78 17 134/94 98 07/14/19 09:09 63 144/95 H 07/14/19 07:53 36.5 C 66 18 183/112 H 97 (1) Altered mental status Altered mental status type: unspecified Qualified Code(s): R41.82 - Altered mental status, unspecified
[2019-07-15] MEDS: QUETIAPINE FUMARATE 25 MG TABLET PO SCH ×2 (08:49→20:24)
--- NOTE | 2019-07-15 15:40 | Hospitalist Progress Note ---
Date of Service July 15, 2019 Assessment & Plan (1) Altered mental status: Psychiatry service has been consulted Started on Seroquel 50 mg at bedtime, 25 mg a.m. Responding well so far, more operative, calmer Psychiatry service recommends that Seroquel dose can be titrated up to 3 times daily :25 mg a.m./25 mg at noon/50 mg at bedtime Continue to monitor Per Dr. Hilliard notes: Patient was found wandering around, on the ground outside his house, found by his neighbor Patient was confused, disoriented Lives at home alone, has caregiver 40 hours daily Patient's ex- POA checks on him frequently-has noticed worsening of confusion, psychosis, delusion last 1 week-has been seeing bugs on the wall,bugs has made holes in the wall -causing him to get wet when it rains pt lives in apartment has been very belligerent and combative with neighbors and landlord (2) Dementia with psychosis: Per Dr. Hilliard notes: Patients with persecutory delusion/noted to have hallucination/psychosis: Thinking everybody is out there to harm him Found to be wandering around, neighbor found him outside on the backyard at night, does not recall, he has been out Trial of Seroquel ordered PRN Haldol IM for agitation Will benefit with [facility] dementia unit Social service consult for discharge planning (3) Acute renal failure: Secondary to poor p.o. intake, Given IV fluids Continue to encourage adequate p.o. fluid intake Hypertensive urgency Per Dr. Hilliard notes: at admission SBP was in 180s, patient has not been taking any of his home meds- listed as lisinopril 5 mg daily/metoprolol tartrate 25 mg twice daily Has been refusing all his medications Refusing vitals, getting agitated Blood pressure improved, continue to monitor CODE STATUS: Discussed with patient's ex-/POA(patient is too confused to participate in conversation) Patient has a living well-he is a DO NOT RESUSCITATE CODE STATUS changed to DNR/DNI Disposition: Be determined, was living alone at home with 40 hours a week help Patient has been progressively declining Refusing care, medications, wandering around Safety to return home/independent living Will need placement at [facility] dementia unit Social service consulted for placement issues Subjective Follow-up for altered mental status Seen sitting up in bed, comfortable, patient is not in distress Confused but overall cooperative, calm, occasionally gets irritable Denies headache, dizziness, shortness of breath, chest pain, abdominal pain, problems urination bowel movement Denies any other symptoms Review of Systems Review of Systems: All systems reviewed & are unremarkable except as noted in HPI & below Physical Exam Physical Exam: General- oriented x 0, not in distress, speaks in sentences with no effort or accessory muscle use Eyes- anicteric Neck- no JVD Lungs- clear breath sounds bilaterally, no rales/wheezes Heart- normal rate, regular rhythm; no murmurs Abdomen- normal bowel sounds, nondistended, soft, nontender Extremities- no pretibial edema, no calf tenderness Neuro- alert, oriented x 0; no gross focal neurologic deficits Skin- warm & dry Results & Data Vital Signs (Past 12 Hours) Vital Signs Temp Pulse Resp BP Pulse Ox 07/15/19 07:25 36.8 C 70 18 129/83 95 (1) Altered mental status Altered mental status type: unspecified Qualified Code(s): R41.82 - Altered mental status, unspecified
[2019-07-15] MEDS: METOPROLOL TARTRATE 25 MG TAB PO SCH (23:03)
[2019-07-16] MEDS: METOPROLOL TARTRATE 25 MG TAB PO SCH ×2 (07:49→20:19)
[2019-07-16] MEDS: QUETIAPINE FUMARATE 25 MG TABLET PO SCH ×2 (07:49→20:19)
[2019-07-16] MEDS: HALOPERIDOL LACTATE 5 MG/ML 1 ML VIAL IM PRN ×2 (17:57→18:28)
--- NOTE | 2019-07-16 18:58 | Hospitalist Progress Note ---
Date of Service July 16, 2019 Assessment & Plan (1) Altered mental status: Psychiatry service has been consulted Started on Seroquel 50 mg at bedtime, 25 mg a.m. --Remains calm overall so far Psychiatry service recommends that Seroquel dose can be titrated up to 3 times daily :25 mg a.m./25 mg at noon/50 mg at bedtime Continue to monitor Per Dr. Hilliard notes: Patient was found wandering around, on the ground outside his house, found by his neighbor Patient was confused, disoriented Lives at home alone, has caregiver 40 hours daily Patient's ex- POA checks on him frequently-has noticed worsening of confusion, psychosis, delusion last 1 week-has been seeing bugs on the wall,bugs has made holes in the wall -causing him to get wet when it rains pt lives in apartment has been very belligerent and combative with neighbors and landlord (2) Dementia with psychosis: Per Dr. Hilliard notes: Patients with persecutory delusion/noted to have hallucination/psychosis: Thinking everybody is out there to harm him Found to be wandering around, neighbor found him outside on the backyard at night, does not recall, he has been out Trial of Seroquel ordered PRN Haldol IM for agitation Will benefit with [facility] dementia unit Social service consulted for a splint (3) Acute renal failure: Secondary to poor p.o. intake, Given IV fluids Continue to encourage adequate p.o. fluid intake Hypertensive urgency Metoprolol 25 mg p.o. twice daily resumed, patient has been taking this Resume lisinopril 5 mg p.o. in the morning CODE STATUS: Discussed with patient's ex-/POA(patient is too confused to participate in conversation) Patient has a living well-he is a DO NOT RESUSCITATE CODE STATUS changed to DNR/DNI Disposition: Will need placement at [facility] dementia unit Social service consulted for placement issues Subjective Follow-up for altered mental status Seen resting bedside chair, calm and cooperative Occasionally gets irritable but is reoriented States he feels fine overall Denies symptoms No other symptoms noted Review of Systems Review of Systems: All systems reviewed & are unremarkable except as noted in HPI & below Physical Exam Physical Exam: General- oriented x 0, not in distress, speaks in sentences with no effort or accessory muscle use Eyes- anicteric Neck- no JVD Lungs- clear breath sounds bilaterally, no rales/wheezes Heart- normal rate, regular rhythm; no murmurs Abdomen- normal bowel sounds, nondistended, soft, nontender Extremities-left lower extremity edema Neuro- alert, oriented x 0; no gross focal neurologic deficits Skin- warm & dry Results & Data Vital Signs (Past 12 Hours) Vital Signs Temp Pulse Resp BP Pulse Ox 07/16/19 08:46 61 07/16/19 07:25 36.6 C 55 L 20 157/88 H 96 (1) Altered mental status Altered mental status type: unspecified Qualified Code(s): R41.82 - Altered mental status, unspecified
--- NOTE | 2019-07-16 20:16 | Ultrasound Report ---
US venous doppler LE LT HISTORY: 79 years-old Male r/o dvt acute pain and swelling of the left lower extremity COMPARISON: None available TECHNIQUE: Multiple real-time sonographic images of the left lower extremity deep venous structures w ere obtained assessing grayscale appearance, color and spectral flow FINDINGS: Normal flow, compressibility, phasicity and augmentation of the left lower extremity deep venous stru ctures. Subcutaneous edema is noted. IMPRESSION: No sonographic evidence of deep venous thrombosis. The above report was generated using voice recognition software. It may contain grammatical, syntax o r spelling errors. Electronically signed by: Jason Dickerson M.D. 07/16/2019 8:15 PM
[2019-07-17] MEDS: METOPROLOL TARTRATE 25 MG TAB PO SCH ×2 (08:44→21:11)
[2019-07-17] MEDS: lisinopriL 5 MG TAB PO SCH (08:44)
[2019-07-17] MEDS: QUETIAPINE FUMARATE 25 MG TABLET PO SCH ×2 (08:44→21:11)
--- NOTE | 2019-07-17 18:24 | Hospitalist Progress Note ---
Date of Service July 17, 2019 Assessment & Plan (1) Altered mental status: Psychiatry service has been consulted Started on Seroquel 50 mg at bedtime, 25 mg a.m. --calm, cooperative today continue above dose of Seroquel Psychiatry service recommends that Seroquel dose can be titrated up to 3 times daily :25 mg a.m./25 mg at noon/50 mg at bedtime Continue to monitor Per Dr. Hilliard notes: Patient was found wandering around, on the ground outside his house, found by his neighbor Patient was confused, disoriented Lives at home alone, has caregiver 40 hours daily Patient's ex- POA checks on him frequently-has noticed worsening of confusion, psychosis, delusion last 1 week-has been seeing bugs on the wall,bugs has made holes in the wall -causing him to get wet when it rains pt lives in apartment has been very belligerent and combative with neighbors and landlord (2) Dementia with psychosis: Per Dr. Hilliard notes: Patients with persecutory delusion/noted to have hallucination/psychosis: Thinking everybody is out there to harm him Found to be wandering around, neighbor found him outside on the backyard at night, does not recall, he has been out Trial of Seroquel ordered PRN Haldol IM for agitation Will benefit with [facility] dementia unit Social service consulted for a splint (3) Acute renal failure: Secondary to poor p.o. intake, Given IV fluids Continue to encourage adequate p.o. fluid intake Hypertensive urgency Metoprolol 25 mg p.o. twice daily resumed, patient has been taking this Resumed lisinopril 5 mg p.o. in the morning -- continue to monitor CODE STATUS: Discussed with patient's ex-/POA(patient is too confused to participate in conversation) Patient has a living well-he is a DO NOT RESUSCITATE CODE STATUS changed to DNR/DNI Disposition: Will need placement at [facility] dementia unit Social service consulted for placement issues Subjective ff up for altered mental status seen resting in bed, watching TV calm, cooperative, pleasantly confused states he feels fine overall denies leg pain denies other symptoms Review of Systems Review of Systems: All systems reviewed & are unremarkable except as noted in HPI & below Physical Exam Physical Exam: General- oriented x 0, not in distress, speaks in sentences with no effort or accessory muscle use Eyes- anicteric Neck- no JVD Lungs- clear breath sounds bilaterally no crackles Heart- normal rate, regular rhythm; no murmurs Abdomen- normal bowel sounds, nondistended, soft, nontender Extremities- mild Left lower extremity edema but no tenderness/warmth, no calf tenderness Neuro- alert, oriented x 0; no gross focal neurologic deficits Skin- warm & dry Results & Data Vital Signs (Past 12 Hours) Vital Signs Temp Pulse Resp BP BP Pulse Ox 07/17/19 11:37 36.3 C L 56 L 18 162/86 H 96 07/17/19 08:55 62 07/17/19 07:23 36.5 C 53 L 20 153/90 H 97 (1) Altered mental status Altered mental status type: unspecified Qualified Code(s): R41.82 - Altered mental status, unspecified
[2019-07-18] MEDS: QUETIAPINE FUMARATE 25 MG TABLET PO SCH ×2 (07:21→20:37)
[2019-07-18] MEDS: lisinopriL 5 MG TAB PO SCH (07:21)
[2019-07-18] MEDS: METOPROLOL TARTRATE 25 MG TAB PO SCH ×2 (07:21→20:38)
[2019-07-18] MEDS ORDERED: AMLODIPINE BESYLATE 5 MG TAB PO ONE (15:26)
[2019-07-18 15:53] LABS: Basophils # (auto) 0.01 K/uL (0-0.2); Basophils % (auto) 0.3 %; Eosinophils # (auto) 0.08 K/uL (0-0.5); Eosinophils % (auto) 2.1 %; Hematocrit (blood only) 47.1 % (42-52); Hemoglobin 16.4 g/dL (14.0-18.0); Lymphocytes # (auto) 0.65 K/uL (1.2-3.4); Lymphocytes % (auto) 16.8 %; Mean Corpuscular Hemoglobin 31.5 pg (25-34); Mean Corpuscular Hgb Conc 34.8 g/dL (32-36); Mean Corpuscular Volume 90.4 fL (80-100); Mean Platelet Volume 10.4 fL (7.4-10.4); Monocytes # (auto) 0.51 K/uL (0.11-0.59); Monocytes % (auto) 13.2 %; Neutrophils # (auto) 2.62 K/uL (1.4-6.5); Neutrophils % (auto) 67.6 %; Platelet Count 110 K/uL (130-400); RDW Coefficient of Variation 13.9 % (11.5-14.5); RDW Standard Deviation 45.8 fL (36.4-46.3); Red Blood Count 5.21 M/uL (4.7-6.1); White Blood Count 3.87 K/uL (4.8-10.8)
[2019-07-18 16:46] LABS: BUN Creatinine Ratio 16.5 (10-20); Calcium 9.1 mg/dl (8.5-10.1); Creatinine Clr Calc Pharmacy 49.1 ml/min; Est GFR (Non-African American) 52.6; Potassium 3.6 mmol/L (3.5-5.1)
--- NOTE | 2019-07-18 17:57 | Hospitalist Progress Note ---
Date of Service July 18, 2019 Assessment & Plan (1) Altered mental status: Psychiatry service has been consulted Started on Seroquel 50 mg at bedtime, 25 mg a.m. --remains calm, cooperative today continue above dose of Seroquel Psychiatry service recommends that Seroquel dose can be titrated up to 3 times daily :25 mg a.m./25 mg at noon/50 mg at bedtime Continue to monitor Per Dr. Hilliard notes: Patient was found wandering around, on the ground outside his house, found by his neighbor Patient was confused, disoriented Lives at home alone, has caregiver 40 hours daily Patient's ex- POA checks on him frequently-has noticed worsening of confusion, psychosis, delusion last 1 week-has been seeing bugs on the wall,bugs has made holes in the wall -causing him to get wet when it rains pt lives in apartment has been very belligerent and combative with neighbors and landlord (2) Dementia with psychosis: Per Dr. Hilliard notes: Patients with persecutory delusion/noted to have hallucination/psychosis: Thinking everybody is out there to harm him Found to be wandering around, neighbor found him outside on the backyard at night, does not recall, he has been out Trial of Seroquel ordered PRN Haldol IM for agitation Will benefit with [facility] dementia unit Social service consulted for a splint (3) Acute renal failure: Secondary to poor p.o. intake, Given IV fluids Continue to encourage adequate p.o. fluid intake Hypertensive urgency Metoprolol 25 mg p.o. twice daily resumed, not at goal change Lisinopril to Amlodipine monitor CODE STATUS: Discussed with patient's ex-/POA(patient is too confused to participate in conversation) Patient has a living well-he is a DO NOT RESUSCITATE CODE STATUS changed to DNR/DNI Disposition: [facility] Social service consulted for placement issues Subjective ff up for altered mental status seen resting in bed, comfortable calm, cooperative takes medications regularly now no other symptoms Review of Systems Review of Systems: All systems reviewed & are unremarkable except as noted in HPI & below Physical Exam Physical Exam: General- oriented x0, not in distress, speaks in sentences with no effort or accessory muscle use Eyes- anicteric Neck- no JVD Lungs- clear breath sounds bilaterally, no crackles/wheezing Heart- normal rate, regular rhythm; no murmurs Abdomen- normal bowel sounds, nondistended, soft, nontender Extremities- no pretibial edema, no calf tenderness Neuro- alert, oriented x 0; no gross focal neurologic deficits Skin- warm & dry Results & Data Vital Signs (Past 12 Hours) Vital Signs Temp Pulse Resp BP Pulse Ox 07/18/19 15:17 36.5 C 66 20 185/100 H 95 07/18/19 11:35 36.6 C 59 L 20 177/109 H 97 Laboratory Results Laboratory Results - last 24 hr 07/18/19 07/18/19 15:42 15:42 WBC 3.87 L RBC 5.21 Hgb 16.4 Hct 47.1 MCV 90.4 MCH 31.5 MCHC 34.8 RDW Std Deviation 45.8 RDW Coeff of Maicol 13.9 Plt Count 110 L MPV 10.4 Immature Gran % (Auto) 0.0 Neut % (Auto) 67.6 Lymph % (Auto) 16.8 [place] % (Auto) 13.2 Eos % (Auto) 2.1 Baso % (Auto) 0.3 Immature Gran # (Auto) 0.00 Neut # (Auto) 2.62 Lymph # (Auto) 0.65 L [place] # (Auto) 0.51 Eos # (Auto) 0.08 Baso # (Auto) 0.01 Sodium 140 Potassium 3.6 Chloride 107 Carbon Dioxide 29 Anion Gap 4.0 BUN 21 H Creatinine 1.30 Est Cr Clr Drug Dosing 49.1 Est GFR ( Amer) 61.0 Est GFR (Non-Af Amer) 52.6 BUN/Creatinine Ratio 16.5 Glucose 91 Calcium 9.1 (1) Altered mental status Altered mental status type: unspecified Qualified Code(s): R41.82 - Altered mental status, unspecified
[2019-07-19] MEDS: METOPROLOL TARTRATE 25 MG TAB PO SCH ×2 (08:43→21:36)
[2019-07-19] MEDS: QUETIAPINE FUMARATE 25 MG TABLET PO SCH ×2 (08:43→21:35)
[2019-07-19] MEDS: AMLODIPINE BESYLATE 5 MG TAB PO SCH ×2 (08:43→21:36)
--- NOTE | 2019-07-19 15:28 | Hospitalist Progress Note ---
Date of Service July 19, 2019 Assessment & Plan (1) Altered mental status: Psychiatry service has been consulted Started on Seroquel 50 mg at bedtime, 25 mg a.m. --remains calm, cooperative ; no new complaints continue above dose of Seroquel Psychiatry service recommends that Seroquel dose can be titrated up to 3 times daily :25 mg a.m./25 mg at noon/50 mg at bedtime Continue to monitor Per Dr. Hilliard notes: Patient was found wandering around, on the ground outside his house, found by his neighbor Patient was confused, disoriented Lives at home alone, has caregiver 40 hours daily Patient's ex- POA checks on him frequently-has noticed worsening of confusion, psychosis, delusion last 1 week-has been seeing bugs on the wall,bugs has made holes in the wall -causing him to get wet when it rains pt lives in apartment has been very belligerent and combative with neighbors and landlord (2) Dementia with psychosis: Per Dr. Hilliard notes: Patients with persecutory delusion/noted to have hallucination/psychosis: Thinking everybody is out there to harm him Found to be wandering around, neighbor found him outside on the backyard at night, does not recall, he has been out Seroquel ordered PRN Acel IM for agitation Will benefit with [facility] dementia unit Social service consulted for a splint (3) Acute renal failure: Secondary to poor p.o. intake, Given IV fluids Continue to encourage adequate p.o. fluid intake Hypertensive urgency Metoprolol 25 mg p.o. twice daily resumed not at goal changed Lisinopril to Amlodipine--> BP improved monitor CODE STATUS: Discussed with patient's ex-/POA(patient is too confused to participate in conversation) Patient has a living well-he is a DO NOT RESUSCITATE CODE STATUS changed to DNR/DNI Disposition: Needing placement at [facility] dementia unit Social service consulted for placement issues Subjective ff up for altered mental status seen resting in bed, watching tv calm, cooperative, pleasantly confused denies headache, chest pain, dizziness, palpitations states he feels fine overall no other symptoms Review of Systems Review of Systems: All systems reviewed & are unremarkable except as noted in HPI & below Physical Exam Physical Exam: General- oriented x 0, not in distress, speaks in sentences with no effort or accessory muscle use Eyes- anicteric Neck- no JVD Lungs- clear BS BL Heart- normal rate, regular rhythm; no murmurs Abdomen- normal bowel sounds, nondistended, soft, nontender Extremities- no pretibial edema, no calf tenderness Neuro- alert, oriented x 0; no gross focal neurologic deficits Skin- warm & dry Results & Data Vital Signs (Past 12 Hours) Vital Signs Temp Pulse Resp BP Pulse Ox 07/19/19 11:46 36.4 C L 69 20 112/75 98 07/19/19 07:57 36.4 C L 59 L 18 123/72 98 Laboratory Results Laboratory Results - last 24 hr 07/18/19 07/18/19 15:42 15:42 WBC 3.87 L RBC 5.21 Hgb 16.4 Hct 47.1 MCV 90.4 MCH 31.5 MCHC 34.8 RDW Std Deviation 45.8 RDW Coeff of Maicol 13.9 Plt Count 110 L MPV 10.4 Immature Gran % (Auto) 0.0 Neut % (Auto) 67.6 Lymph % (Auto) 16.8 [place] % (Auto) 13.2 Eos % (Auto) 2.1 Baso % (Auto) 0.3 Immature Gran # (Auto) 0.00 Neut # (Auto) 2.62 Lymph # (Auto) 0.65 L [place] # (Auto) 0.51 Eos # (Auto) 0.08 Baso # (Auto) 0.01 Sodium 140 Potassium 3.6 Chloride 107 Carbon Dioxide 29 Anion Gap 4.0 BUN 21 H Creatinine 1.30 Est Cr Clr Drug Dosing 49.1 Est GFR ( Amer) 61.0 Est GFR (Non-Af Amer) 52.6 BUN/Creatinine Ratio 16.5 Glucose 91 Calcium 9.1 (1) Altered mental status Altered mental status type: unspecified Qualified Code(s): R41.82 - Altered mental status, unspecified
[2019-07-20] MEDS: AMLODIPINE BESYLATE 5 MG TAB PO SCH ×2 (08:16→21:09)
[2019-07-20] MEDS: METOPROLOL TARTRATE 25 MG TAB PO SCH ×2 (08:16→21:08)
[2019-07-20] MEDS: QUETIAPINE FUMARATE 25 MG TABLET PO SCH ×2 (08:16→21:08)
--- NOTE | 2019-07-20 20:46 | Hospitalist Progress Note ---
Date of Service July 20, 2019 Assessment & Plan (1) Altered mental status: Psychiatry service has been consulted Started on Seroquel 50 mg at bedtime, 25 mg a.m. --remains calm, cooperative ; no new complaints; remains stable overall no new complaints continue above dose of Seroquel Psychiatry service recommends that Seroquel dose can be titrated up to 3 times daily :25 mg a.m./25 mg at noon/50 mg at bedtime Continue to monitor Per Dr. Hilliard notes: Patient was found wandering around, on the ground outside his house, found by his neighbor Patient was confused, disoriented Lives at home alone, has caregiver 40 hours daily Patient's ex- POA checks on him frequently-has noticed worsening of confusion, psychosis, delusion last 1 week-has been seeing bugs on the wall,bugs has made holes in the wall -causing him to get wet when it rains pt lives in apartment has been very belligerent and combative with neighbors and landlord (2) Dementia with psychosis: Per Dr. Hilliard notes: Patients with persecutory delusion/noted to have hallucination/psychosis: Thinking everybody is out there to harm him Found to be wandering around, neighbor found him outside on the backyard at night, does not recall, he has been out Seroquel ordered PRN Haldol IM for agitation Will benefit with [facility] dementia unit Social service consulted for a splint (3) Acute renal failure: Secondary to poor p.o. intake, Given IV fluids Continue to encourage adequate p.o. fluid intake Hypertensive urgency Metoprolol 25 mg p.o. twice daily resumed not at goal changed Lisinopril to Amlodipine--> BP improved monitor CODE STATUS: Discussed with patient's ex-/POA(patient is too confused to participate in conversation) Patient has a living well-he is a DO NOT RESUSCITATE CODE STATUS changed to DNR/DNI Disposition: Needing placement at [facility] dementia unit Social service consulted for placement issues Subjective ff up for altered mental status seen resting in bedside chair, comfortable calm, cooperative pleasantly confused denies symptoms Review of Systems Review of Systems: All systems reviewed & are unremarkable except as noted in HPI & below Physical Exam Physical Exam: General- oriented x 0, not in distress, speaks in sentences with no effort or accessory muscle use Eyes- anicteric Neck- no JVD Lungs- clear BS BL Heart- normal rate, regular rhythm; no murmurs Abdomen- normal bowel sounds, nondistended, soft, nontender Extremities- no pretibial edema, no calf tenderness Neuro- alert, oriented x 0; no gross focal neurologic deficits Skin- warm & dry (1) Altered mental status Altered mental status type: unspecified Qualified Code(s): R41.82 - Altered mental status, unspecified
--- NOTE | 2019-07-21 09:25 | Hospitalist Progress Note ---
Date of Service delayed entry date of service noted below July 21, 2019 Assessment & Plan (1) Altered mental status: Psychiatry service has been consulted Started on Seroquel 50 mg at bedtime, 25 mg a.m. -- for the past few days, patient remains calm, cooperative ; no new complaints; remains stable overall continue above dose of Seroquel Psychiatry service recommends that Seroquel dose can be titrated up to 3 times daily :25 mg a.m./25 mg at noon/50 mg at bedtime Continue to monitor Per Dr. Hilliard notes: Patient was found wandering around, on the ground outside his house, found by his neighbor Patient was confused, disoriented Lives at home alone, has caregiver 40 hours daily Patient's ex- POA checks on him frequently-has noticed worsening of confusion, psychosis, delusion last 1 week-has been seeing bugs on the wall,bugs has made holes in the wall -causing him to get wet when it rains pt lives in apartment has been very belligerent and combative with neighbors and landlord (2) Dementia with psychosis: Per Dr. Hilliard notes: Patients with persecutory delusion/noted to have hallucination/psychosis: Thinking everybody is out there to harm him Found to be wandering around, neighbor found him outside on the backyard at night, does not recall, he has been out Seroquel ordered PRN Haldol IM for agitation Will benefit with [facility] Social service consulted for a splint (3) Acute renal failure: Secondary to poor p.o. intake, Given IV fluids Continue to encourage adequate p.o. fluid intake Hypertensive urgency Metoprolol 25 mg p.o. twice daily resumed not at goal changed Lisinopril to Amlodipine--> BP improved monitor CODE STATUS: Discussed with patient's ex-/POA(patient is too confused to participate in conversation) Patient has a living well-he is a DO NOT RESUSCITATE CODE STATUS changed to DNR/DNI Disposition: Needing placement at [facility] dementia unit Social service consulted for placement issues Subjective ff up for altered mental status patient sleeping, not in distress irritable when awakened when asked for symptoms, patient shakes his head no other signs per tire design engineer of Systems Review of Systems: All systems reviewed & are unremarkable except as noted in HPI & below Physical Exam Physical Exam: General- sleeping, not in distress Neck- no JVD Lungs- clear breath sounds bilaterally Heart- normal rate, regular rhythm; no murmurs Abdomen- normal bowel sounds, nondistended, soft, nontender Extremities- no pretibial edema, no calf tenderness Neuro- patient's eyes closed, mostly sleeping Skin- warm & dry Results & Data Vital Signs (Past 12 Hours) Vital Signs Temp Pulse Resp BP Pulse Ox 07/21/19 07:11 36.5 C 62 20 145/87 H 98 07/20/19 23:10 36.5 C 74 16 136/88 98 (1) Altered mental status Altered mental status type: unspecified Qualified Code(s): R41.82 - Altered mental status, unspecified
[2019-07-21] MEDS: METOPROLOL TARTRATE 25 MG TAB PO SCH ×2 (10:31→20:13)
[2019-07-21] MEDS: QUETIAPINE FUMARATE 25 MG TABLET PO SCH ×2 (10:31→20:13)
[2019-07-21] MEDS: AMLODIPINE BESYLATE 5 MG TAB PO SCH ×2 (10:31→20:13)
[2019-07-22] MEDS: METOPROLOL TARTRATE 25 MG TAB PO SCH ×2 (08:40→20:37)
[2019-07-22] MEDS: QUETIAPINE FUMARATE 25 MG TABLET PO SCH ×2 (10:48→20:37)
[2019-07-22] MEDS: AMLODIPINE BESYLATE 5 MG TAB PO SCH ×2 (10:48→20:37)
--- NOTE | 2019-07-22 15:20 | Hospitalist Progress Note ---
Date of Service July 22, 2019 Assessment & Plan (1) Altered mental status: Psychiatry service has been consulted on Seroquel 50 mg at bedtime, 25 mg a.m./25 mg at noon -- for the past few days, patient remains calm, cooperative ; no new complaints; remains stable overall continue above dose of Seroquel Patient is waiting for placement at dementia unit Patient was found wandering around, on the ground outside his house, found by his neighbor Patient was confused, disoriented Lives at home alone, has caregiver 40 hours daily Patient's ex- POA checks on him frequently-has noticed worsening of confusion, psychosis, delusion last 1 week-has been seeing bugs on the wall,bugs has made holes in the wall -causing him to get wet when it rains pt lives in apartment has been very belligerent and combative with neighbors and landlord (2) Dementia with psychosis: 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 intake, Given IV fluids Continue to encourage adequate p.o. fluid intake Hypertensive urgency Metoprolol 25 mg p.o. twice daily resumed not at goal changed Lisinopril to Amlodipine--> BP improved monitor CODE STATUS: Discussed with patient's ex-/POA(patient is too confused to participate in conversation) Patient has a living well-he is a DO NOT RESUSCITATE CODE STATUS changed to DNR/DNI Disposition: Needing placement at [facility] dementia unit Social service consulted for placement issues Subjective no change in status, Remains confused, no agitation or combativeness noted Stable vitals Physical Exam Constitutional: + ill appearing Eyes: + anicteric sclerae Neck: normal visual inspection Respiratory: no respiratory distress, no labored breathing and no cough Auscultation: no wheezes Cardiovascular: RRR, no murmur, no edema Gastrointestinal (Abdomen): Percussion/Palpation: abdomen soft; abdomen nontender Musculoskeletal: Head/Neck/Chest: normocephalic and head atraumatic Neurologic: PERRL, EOMI, accommodation nl, no face palsy, no dysarthria Psychiatric: Orientation: alert (Very agitated,) and oriented to person Eye Contact: + poor eye contact Mood: + angry mood (Evidence of psychosis, persecutory delusion) Thought Process: + tangential thought process Thought Content: + delusions Insight: + poor insight Results & Data Vital Signs (Past 12 Hours) Vital Signs Temp Pulse Resp BP Pulse Ox 07/22/19 07:12 36.4 C L 55 L 20 135/82 98 (1) Altered mental status Altered mental status type: unspecified Qualified Code(s): R41.82 - Altered mental status, unspecified
[2019-07-23] MEDS: AMLODIPINE BESYLATE 5 MG TAB PO SCH ×2 (09:59→20:03)
[2019-07-23] MEDS: QUETIAPINE FUMARATE 25 MG TABLET PO SCH ×2 (09:59→20:03)
[2019-07-23] MEDS: METOPROLOL TARTRATE 25 MG TAB PO SCH ×2 (10:00→20:03)
--- NOTE | 2019-07-23 13:44 | Hospitalist Progress Note ---
Date of Service July 23, 2019 Assessment & Plan (1) Altered mental status: Psychiatry service has been consulted on Seroquel 50 mg at bedtime, 25 mg a.m./25 mg at noon -- for the past few days, patient remains calm, cooperative ; no new complaints; remains stable overall continue above dose of Seroquel Patient is waiting for placement at dementia unit patient was found wandering around, on the ground outside his house, found by his neighbor Patient was confused, disoriented Was living at home alone, has caregiver 40 hours daily Patient's ex- POA checks on him frequently-has noticed worsening of confusion, psychosis, delusion Abdomen worsened in the last few weeks pt -has been seeing bugs on the wall,bugs has made holes in the wall -causing him to get wet when it rains pt lives in apartment has been very belligerent and combative with neighbors and landlord (2) Dementia with psychosis: Patients with persecutory delusion/noted to have hallucination/psychosis: Thinking everybody is out there to harm him Found to be wandering around, neighbor found him outside on the backyard at night, does not recall, he has been out Seroquel dose as updated above PRN Haldol IM for agitation Will benefit with locked dementia unit Social service consulted for a splint (3) Acute renal failure: Secondary to poor p.o. intake, Given IV fluids Continue to encourage adequate p.o. fluid intake Hypertensive urgency Presented with hypertensive urgency: Possible secondary medication noncompliance, patient has not been taking any of his BP meds for weeks, was very agitated combative on admission BP improved after reinstitution of BP meds, On metoprolol 25 mg p.o. twice daily Antihypertensive changed lisinopril to Amlodipine--> BP improved monitor CODE STATUS: Discussed with patient's ex-/POA(patient is too confused to participate in conversation) Patient has a living well-he is a DO NOT RESUSCITATE CODE STATUS changed to DNR/DNI Disposition: Patient needs placement at care home, not safe to return back home Social service consulted for placement issues Appreciate input Patient will be evaluated by [facility] care home Referral made to [facility] Subjective Baseline advanced dementia, remains cooperative, calm, no episode of agitation, delirium noted Patient is oriented to person only Waiting for placement at dementia unit/care home Physical Exam Constitutional: + ill appearing Eyes: + anicteric sclerae Neck: normal visual inspection Respiratory: no respiratory distress, no labored breathing and no cough Auscultation: no wheezes Cardiovascular: RRR, no murmur, no edema Gastrointestinal (Abdomen): Percussion/Palpation: abdomen soft; abdomen nontender Musculoskeletal: Head/Neck/Chest: normocephalic and head atraumatic Neurologic: PERRL, EOMI, accommodation nl, no face palsy, no dysarthria Psychiatric: Orientation: alert (Very agitated,) and oriented to person Apperance: + disheveled Eye Contact: + poor eye contact Motor Behavior: + psychomotor agitation Speech: + pressured speech and + loud speech Affect: + angry affect Mood: + angry mood (Evidence of psychosis, persecutory delusion) Thought Process: + tangential thought process Thought Content: + delusions Insight: + poor insight Results & Data Vital Signs (Past 12 Hours) Vital Signs Temp Pulse Resp BP Pulse Ox 07/23/19 10:24 36.6 C 74 18 141/96 H 97 (1) Altered mental status Altered mental status type: unspecified Qualified Code(s): R41.82 - Altered mental status, unspecified
[2019-07-24] MEDS: AMLODIPINE BESYLATE 5 MG TAB PO SCH ×2 (11:44→21:14)
[2019-07-24] MEDS: METOPROLOL TARTRATE 25 MG TAB PO SCH ×2 (11:45→21:13)
[2019-07-24] MEDS: QUETIAPINE FUMARATE 25 MG TABLET PO SCH ×2 (11:45→21:12)
--- NOTE | 2019-07-24 17:41 | Hospitalist Progress Note ---
Date of Service July 24, 2019 Assessment & Plan (1) Altered mental status: Psychiatry service has been consulted on Seroquel 50 mg at bedtime, 25 mg a.m./25 mg at noon -- for the past few days, patient remains calm, cooperative ; no new complaints; remains stable overall continue above dose of Seroquel Patient is waiting for placement at dementia unit patient was found wandering around, on the ground outside his house, found by his neighbor Patient was confused, disoriented Was living at home alone, has caregiver 40 hours daily Patient's ex- POA checks on him frequently-has noticed worsening of confusion, psychosis, delusion Abdomen worsened in the last few weeks pt -has been seeing bugs on the wall,bugs has made holes in the wall -causing him to get wet when it rains pt lives in apartment has been very belligerent and combative with neighbors and landlord (2) Dementia with psychosis: Patients with persecutory delusion/noted to have hallucination/psychosis: Thinking everybody is out there to harm him Found to be wandering around, neighbor found him outside on the backyard at night, does not recall, he has been out Seroquel dose as updated above PRN Haldol IM for agitation Transfer to locked dementia unit at [facility] on Saturday (3) Acute renal failure: Secondary to poor p.o. intake, Given IV fluids Continue to encourage adequate p.o. fluid intake Hypertensive urgency Presented with hypertensive urgency: Possible secondary medication noncompliance, patient has not been taking any of his BP meds for weeks, was very agitated combative on admission BP improved after reinstitution of BP meds, On metoprolol 25 mg p.o. twice daily Antihypertensive changed lisinopril to Amlodipine--> BP improved monitor CODE STATUS: Discussed with patient's ex-/POA(patient is too confused to participate in conversation) Patient has a living well-he is a DO NOT RESUSCITATE CODE STATUS changed to DNR/DNI Disposition: [facility] placement at [facility], not safe to return back home Social service consulted for placement issues Appreciate input Transfer to dementia unit at [facility] on 07/27/2019 Subjective No further complain Per nursing patient has been cooperative Baseline advanced dementia, , no episode of agitation, delirium noted Patient is oriented to person only Plan to transfer to dementia unit at [facility] on Saturday Physical Exam Constitutional: + ill appearing Eyes: + anicteric sclerae Neck: normal visual inspection Respiratory: no respiratory distress, no labored breathing and no cough Auscultation: no wheezes Cardiovascular: RRR, no murmur, no edema Gastrointestinal (Abdomen): Percussion/Palpation: abdomen soft; abdomen nontender Musculoskeletal: Head/Neck/Chest: normocephalic and head atraumatic Neurologic: PERRL, EOMI, accommodation nl, no face palsy, no dysarthria Psychiatric: Orientation: alert (Very agitated,) and oriented to person Apperance: + disheveled Eye Contact: + poor eye contact Motor Behavior: + psychomotor agitation Speech: + pressured speech and + loud speech Affect: + angry affect Mood: + angry mood (Evidence of psychosis, persecutory delusion) Thought Process: + tangential thought process Thought Content: + delusions Insight: + poor insight Results & Data Vital Signs (Past 12 Hours) Vital Signs Temp Resp BP BP Pulse Ox 07/24/19 15:50 36.4 C L 18 145/84 H 98 07/24/19 11:47 36.7 C 16 128/77 97 (1) Altered mental status Altered mental status type: unspecified Qualified Code(s): R41.82 - Altered mental status, unspecified
[2019-07-25] MEDS: AMLODIPINE BESYLATE 5 MG TAB PO SCH ×2 (09:22→20:31)
[2019-07-25] MEDS: METOPROLOL TARTRATE 25 MG TAB PO SCH ×2 (09:22→20:32)
[2019-07-25] MEDS: QUETIAPINE FUMARATE 25 MG TABLET PO SCH ×2 (09:22→20:33)
--- NOTE | 2019-07-25 15:56 | Hospitalist Progress Note ---
Date of Service July 25, 2019 Assessment & Plan (1) Altered mental status: Psychiatry service has been consulted on Seroquel 50 mg at bedtime, 25 mg a.m./25 mg at noon -- for the past few days, patient remains calm, cooperative ; no new complaints; remains stable overall continue above dose of Seroquel Patient is waiting for placement at dementia unit patient was found wandering around, on the ground outside his house, found by his neighbor Patient was confused, disoriented Was living at home alone, has caregiver 40 hours daily Patient's ex- POA checks on him frequently-has noticed worsening of confusion, psychosis, delusion Abdomen worsened in the last few weeks pt -has been seeing bugs on the wall,bugs has made holes in the wall -causing him to get wet when it rains pt lives in apartment has been very belligerent and combative with neighbors and landlord (2) Dementia with psychosis: Patients with persecutory delusion/noted to have hallucination/psychosis: Thinking everybody is out there to harm him Found to be wandering around, neighbor found him outside on the backyard at night, does not recall, he has been out Seroquel dose as updated above PRN Haldol IM for agitation Transfer to locked dementia unit at [facility] on Saturday (3) Acute renal failure: Secondary to poor p.o. intake, Given IV fluids Continue to encourage adequate p.o. fluid intake Hypertensive urgency Presented with hypertensive urgency: Possible secondary medication noncompliance, patient has not been taking any of his BP meds for weeks, was very agitated combative on admission BP improved after reinstitution of BP meds, On metoprolol 25 mg p.o. twice daily Antihypertensive changed lisinopril to Amlodipine--> BP improved monitor CODE STATUS: Discussed with patient's ex-/POA(patient is too confused to participate in conversation) Patient has a living well-he is a DO NOT RESUSCITATE CODE STATUS changed to DNR/DNI Disposition: Patient needs placement at halfway, not safe to return back home Social service consulted for placement issues Appreciate input Transfer to dementia unit at [facility] on 07/27/2019 Subjective Tests remains stable, Baseline advanced dementia, , no episode of agitation, delirium noted Patient is oriented to person only Plan to transfer to dementia unit at [facility] on Saturday07/27/2019 Physical Exam Constitutional: + ill appearing Eyes: + anicteric sclerae Neck: normal visual inspection Respiratory: no respiratory distress, no labored breathing and no cough Auscultation: no wheezes Cardiovascular: RRR, no murmur, no edema Gastrointestinal (Abdomen): Percussion/Palpation: abdomen soft; abdomen nontender Musculoskeletal: Head/Neck/Chest: normocephalic and head atraumatic Neurologic: PERRL, EOMI, accommodation nl, no face palsy, no dysarthria Psychiatric: Orientation: alert (Very agitated,) and oriented to person Apperance: + disheveled Eye Contact: + poor eye contact Motor Behavior: + psychomotor agitation Speech: + pressured speech and + loud speech Affect: + angry affect Mood: + angry mood (Evidence of psychosis, persecutory delusion) Thought Process: + tangential thought process Thought Content: + delusions Insight: + poor insight Results & Data Vital Signs (Past 12 Hours) Vital Signs Temp Pulse Resp BP Pulse Ox 07/25/19 14:58 35.5 C L 63 16 120/79 98 07/25/19 07:16 36.5 C 64 18 141/88 H 98 (1) Altered mental status Altered mental status type: unspecified Qualified Code(s): R41.82 - Altered mental status, unspecified
[2019-07-26] MEDS: AMLODIPINE BESYLATE 5 MG TAB PO SCH ×2 (09:54→20:40)
[2019-07-26] MEDS: METOPROLOL TARTRATE 25 MG TAB PO SCH ×2 (09:54→20:41)
[2019-07-26] MEDS: QUETIAPINE FUMARATE 25 MG TABLET PO SCH ×2 (09:54→20:42)
--- NOTE | 2019-07-26 16:20 | Hospitalist Progress Note ---
Date of Service July 26, 2019 Assessment & Plan (1) Altered mental status: Psychiatry service has been consulted on Seroquel 50 mg at bedtime, 25 mg a.m./25 mg at noon -- for the past few days, patient remains calm, cooperative ; no new complaints; remains stable overall continue above dose of Seroquel Patient is waiting for placement at dementia unit patient was found wandering around, on the ground outside his house, found by his neighbor Patient was confused, disoriented Was living at home alone, has caregiver 40 hours daily Patient's ex- POA checks on him frequently-has noticed worsening of confusion, psychosis, delusion Abdomen worsened in the last few weeks pt -has been seeing bugs on the wall,bugs has made holes in the wall -causing him to get wet when it rains pt lives in apartment has been very belligerent and combative with neighbors and landlord (2) Dementia with psychosis: Patients with persecutory delusion/noted to have hallucination/psychosis: Thinking everybody is out there to harm him Found to be wandering around, neighbor found him outside on the backyard at night, does not recall, he has been out Seroquel dose as updated above Has not required PRN IM Haldol Transfer to dementia unit at [facility] on tomorrow 07/27/2019 (3) Acute renal failure: Secondary to poor p.o. intake, Given IV fluids Continue to encourage adequate p.o. fluid intake Hypertensive urgency Presented with hypertensive urgency: Possible secondary medication noncompliance, patient has not been taking any of his BP meds for weeks, was very agitated combative on admission BP improved after reinstitution of BP meds, On metoprolol 25 mg p.o. twice daily Antihypertensive changed lisinopril to Amlodipine--> BP improved Dose lisinopril CODE STATUS: Discussed with patient's ex-/POA(patient is too confused to participate in conversation) Patient has a living well-he is a DO NOT RESUSCITATE CODE STATUS changed to DNR/DNI Disposition: Patient needs placement at senior care, not safe to return back home Social service consulted for placement issues Appreciate input Transfer to dementia unit at [facility] on 07/27/2019 Subjective Very pleasant and cooperative, no agitation, baseline advanced dementia with oriented to person only Has been stable so far Plan to transfer to dementia unit at [facility] on Saturday07/27/2019 Physical Exam Constitutional: + ill appearing Eyes: + anicteric sclerae Neck: normal visual inspection Respiratory: no respiratory distress, no labored breathing and no cough Auscultation: no wheezes Cardiovascular: RRR, no murmur, no edema Gastrointestinal (Abdomen): Percussion/Palpation: abdomen soft; abdomen nontender Musculoskeletal: Head/Neck/Chest: normocephalic and head atraumatic Neurologic: PERRL, EOMI, accommodation nl, no face palsy, no dysarthria Psychiatric: Orientation: alert (Very agitated,) and oriented to person Apperance: + disheveled Eye Contact: + poor eye contact Motor Behavior: + psychomotor agitation Speech: + pressured speech and + loud speech Affect: + angry affect Mood: + angry mood (Evidence of psychosis, persecutory delusion) Thought Process: + tangential thought process Thought Content: + delusions Insight: + poor insight Results & Data Vital Signs (Past 12 Hours) Vital Signs Temp Pulse Resp BP Pulse Ox 07/26/19 15:05 36.8 C 69 20 134/81 92 07/26/19 07:45 36.6 C 60 16 106/67 97 (1) Altered mental status Altered mental status type: unspecified Qualified Code(s): R41.82 - Altered mental status, unspecified
--- NOTE | 2019-07-27 10:36 | Discharge Summary ---
Date of Service July 27, 2019 Admission HPI Per Admitting Provider Eric Leach is a 79-year-old male admitted medically on 07/12/19 after he was brought to the ED by EMS for confusion. Pt was reportedly found by his neighbor, when patient was laying on the cold, wet ground. Family was informed and has assisted in providing collateral. PMH includes CVAs, residual leg weakness, HLD, HTN, CKD stage III, adjustment disorder, and tobacco use. Pt does have a history of vascular dementia, reported as far back as a psychiatric consultation in 2011. It is reported that the patient live independently, but receives care from a home health nurse 40 hours per week. He was last seen on psychiatric consult service in 2013, to evaluate for reported history of bipolar disorder - which has not been confirmed. Psychiatric consultation during present admission is requested for the same, along with medication recommendations to manage agitation demonstrated during initial admission. Pt was cooperative with psychiatric evaluation, however, the reliability of his history is questionable. Pt begins our conversation by verbalizing that he is "tired of people lying." Pt shares a belief that nurses are "mingling in my and my 's business." Pt was informed that our goals are to help him feel better, but also to coordinate a safe discharge plan - at that communication with his family is necessary for this. Pt admits that his is actually his ex-, and previous consults suggest they have been for over 25 years, though she continues to be a major caregiver. Pt shares more of his concerns about "people mingling", and then abruptly states, "and don't even ask me for my home address, because I don't know it!" Pt states that he was "moved last Saturday", but cannot provider the address for either housing option. 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 I'm here." Pt denies any suicidal ideation, stating "life is worth living." He also denies homicidal ideation. Aside from patient's belief that staff is "spreading rumors", he admits to feeling safe and comfortable in the hospital. Pt's attempts to share his thoughts are often interrupted by tangential requests for a can of chew. Pt then shares with this provider, "you're not telling me where I'm going to live." When asked what his housing options are at this time, he was unable to respond with a related comment - let alone clear ideas for living options. 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 Pt denies other needs at this time. Pt denies SI, HI, SIB, A/V hallucinations, pauly/hypomania, other symptoms more suggestive of a bipolar presentation, OCD, PTSD, eating disorder, and other specific psychiatric symptoms. Principal Diagnosis DEMENTIA WITH PSYCHOSIS HYPERTENSION Discharge Exam Constitutional + ill appearing Eyes + anicteric sclerae Neck normal visual inspection Respiratory no respiratory distress, no labored breathing and no cough Auscultation: no wheezes Cardiovascular RRR, no murmur, no edema Gastrointestinal (Abdomen) Percussion/Palpation: abdomen soft; abdomen nontender Musculoskeletal Head/Neck/Chest: normocephalic and head atraumatic Neurologic PERRL, EOMI, accommodation nl, no face palsy, no dysarthria Psychiatric Orientation: alert (Very agitated,) and oriented to person Apperance: + disheveled Eye Contact: + poor eye contact Motor Behavior: + psychomotor agitation Speech: + pressured speech and + loud speech Affect: + angry affect Mood: + angry mood (Evidence of psychosis, persecutory delusion) Thought Process: + tangential thought process Thought Content: + delusions Insight: + poor insight Discharge Data Allergies Allergy/AdvReac Type Severity Reaction Status Date / Time No Known Allergies Allergy Unverified 07/11/19 22:39 Consultations 07/11/19 22:54 ED Decision to Admit Stat 07/12/19 02:20 Consult Case Management - Discharge Planning Routine 07/14/19 11:17 Consult Psychiatry Routine Ordered Studies 07/11/19 21:43 CT cervical spine wo con Stat CT head/brain wo con Stat 07/16/19 18:53 US venous doppler LE LT Stat Hospital Course (1) Altered mental status: Psychiatry service has been consulted on Seroquel 50 mg at bedtime, 25 mg a.m./25 mg at noon -- for the past few days, patient remains calm, cooperative ; no new complaints; remains stable overall continue above dose of Seroquel Patient is waiting for placement at dementia unit patient was found wandering around, on the ground outside his house, found by his neighbor Patient was confused, disoriented Was living at home alone, has caregiver 40 hours daily Patient's ex- POA checks on him frequently-has noticed worsening of confusion, psychosis, delusion Abdomen worsened in the last few weeks pt -has been seeing bugs on the wall,bugs has made holes in the wall -causing him to get wet when it rains pt lives in apartment has been very belligerent and combative with neighbors and landlord (2) Dementia with psychosis: Patients with persecutory delusion/noted to have hallucination/psychosis: Thinking everybody is out there to harm him Found to be wandering around, neighbor found him outside on the backyard at night, does not recall, he has been out Seroquel dose as updated above Has not required PRN IM Haldol Transfer to dementia unit at [facility] on today (3) Acute renal failure: Secondary to poor p.o. intake, Given IV fluids Continue to encourage adequate p.o. fluid intake Hypertensive urgency Presented with hypertensive urgency: Possible secondary medication noncompliance, patient has not been taking any of his BP meds for weeks, was very agitated combative on admission BP improved after reinstitution of BP meds, On metoprolol 25 mg p.o. twice daily Antihypertensive changed lisinopril to Amlodipine--> BP improved Dose lisinopril CODE STATUS: Discussed with patient's ex-/POA(patient is too confused to participate in conversation) Patient has a living well-he is a DO NOT RESUSCITATE CODE STATUS changed to DNR/DNI Disposition: Patient needs placement at retirement, not safe to return back home Social service consulted for placement issues Appreciate input Transfer to dementia unit at [facility] today Total Time Total Time Spent Total Time Spent (In Minutes): approx 35 mins Total Time Includes: Examination of the Patient, Discharge Planning and Medication Reconciliation Discharge Plan Discharge Items Patient Disposition: Trans Resident Long-Term Care Reason For Visit: CONFUSION? Discharge Diagnosis: DEMENTIA WITH PSYCHOSIS HYPERTENSION Condition on Discharge: Fair Activity: Resume your previous activity Non-emergency contact: Primary Care Provider Call non-emergency contact if: you have any medication questions Follow-up/Referrals: Miguel Smith MD [Primary Care Provider] - Diet: Regular Addtl Attending Provider Instructions: CONTINUE MEDICATIONS INSTRUCTED OBSERVE FALL PRECAUTION Pending Studies at Discharge: No Stand-Alone Forms: My [facility] Skilled Items Patient informed of condition?: Yes DNR: Yes Discharge Level of Care: Other Communicable Disease: No Discharge Prognosis: Stable Lines: None Urinary Catheter: No Medications and DC Order Prescriptions: New quetiapine 25 mg Tablet 25 mg PO DAILY 30 Days Qty: 30 RF: 0 quetiapine 25 mg Tablet 50 mg PO HS 30 Days Qty: 60 RF: 0 polyethylene glycol 3350 [Miralax] 17 gram Powder In Packet 17 g PO DAILY PRN (Reason: CONSTIPATION) 30 Days Qty: 30 RF: 0 amlodipine [Norvasc] 5 mg Tablet 5 mg PO BID 30 Days Qty: 60 RF: 0 Continued metoprolol tartrate 25 mg tablet 25 mg PO BID RF: 0 Discontinued lisinopril 5 mg tablet 5 mg PO DAILY RF: 0 Discharge Orders: Discharge Order (Routine); Ordered 07/27/19 Ordered By: Elicia Hilliard Admission Data Admit Date/Time: 07/12/19 00:53 Attending Provider: Elicia Hilliard Admit Provider: Jimbo Streeter Primary Care Provider: Miugel Smith Other Providers: Jimbo Streeter ; Edita Meredith Ayesha H. Other Interventions: Discharge Summary Assessment (RN) Last Done: 07/27/19 14:40
[2019-07-27] MEDS: METOPROLOL TARTRATE 25 MG TAB PO SCH (14:13)
[2019-07-27] MEDS: AMLODIPINE BESYLATE 5 MG TAB PO SCH (14:13)
[2019-07-27] MEDS: QUETIAPINE FUMARATE 25 MG TABLET PO SCH (14:14)
== END 2019-07-27 16:39 | DRG 884 ==
LOC: ED 21:25 → SUATTDRO 07-12 00:53 → 2N 07-12 00:53 → 4W 07-19 15:51